=== PATIENT | male | born 1960 | race Caucasian/White ===

== ENCOUNTER 2024-01-19 10:18 | Inpatient (IN) ==
--- NOTE | 2024-01-19 10:37 | Emergency Department Note ---
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 The episodes are sporadic and characterized by seconds of severe imbalance and dizziness and brain fog that then lydia but he also reports an underlying constant feeling of dizziness. He feels at times that he may pass out but has not lost consciousness. He denies any recent fevers, chills, cough, congestion, GI or symptoms. He reports he has been hydrating for. He works from home. He denies any tobacco use, alcohol use, marijuana or drugs otherwise. A stroke alert was activated in triage due to the onset of symptoms within 24 hours ago not considered to be a TNK candidate given last known well prior to onset of symptoms was 7 PM last night. On evaluation the patient is no distress, afebrile with stable vital signs. He appears clinically dry. He exhibits no focal objective neurologic deficits at this time. Speech is fluent. CN II-XII grossly intact. 5/5 strength and SILT x 4 extremities. Cerebellar function intact including [id number], alternating palms, [id number]. EKG does not demonstrate overt acute ischemia. Patient's prior history of known type I Brugada pattern is seen with intermittent PVCs. QTc is 469, QRS 132, NC 368. WBC, H/H and platelets within normal limits. Chemistry without metabolic acidosis. Electrolytes and LFTs without significant abnormality. Has to be troponin 3.2, within normal limits. UA without evidence of infection. CT of the head and CT of the head and neck were performed and were negative for ICH, ischemia or severe narrowing or occlusion of large vessels. Given no large vessel occlusion stroke alert was discontinued. IV fluid hydration was administered. Case was discussed with [facility], who will evaluate the patient for admission. Triage Nursing notes reviewed and agree them. Prior/external medical records reviewed Vital Signs: reviewed Differential diagnosis: Benign positional vertigo, dehydration, hypovolemia, anemia, tumor, infection, hypoglycemia, electrolyte abnormalities, cardiac sources, intracerebral event, toxicologic, neurologic, as well as other pathologies. ER treatment provided: See below. Diagnostics interpreted by me: ECG: Sinus rhythm with first-degree AV block, 71 bpm. Type I Brugada pattern is seen with intermittent PVCs. QTc is 469, QRS 132, NC 368. 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 The episodes are sporadic and characterized by seconds of severe imbalance and dizziness and brain fog that then lydia but he also reports an underlying constant feeling of dizziness. He feels at times that he may pass out but has not lost consciousness. He denies any recent fevers, chills, cough, congestion, GI or symptoms. He reports he has been hydrating for. He works from home. He denies any tobacco use, alcohol use, marijuana or drugs otherwise. ROS: See above HPI for pertinent positives & negatives. A total of 10 systems reviewed and were otherwise negative. VITALS:See Below PHYSICAL EXAMINATION: GENERAL: Awake, alert, in no distress HENT: Normocephalic, atraumatic. Oropharynx with dry mucous membranes and otherwise unremarkable. EYES: Normal conjunctiva. Sclera non-icteric. EOMI. No nystamgus. PEARRL. NECK: Supple. No nuchal rigidity. FROM. No JVD. RESPIRATORY: Clear to auscultation. CARDIAC: Regular rate, normal rhythm. Extremities warm and well perfused. Pulses equal. ABDOMEN: Soft, non-distended. No tenderness to palpation. No rebound or guarding. No masses. MUSCULOSKELETAL: Chest examination reveals no tenderness. The back is symmetrical on inspection without obvious abnormality. There is no CVA tenderness to palpation. No joint edema. LOWER EXTREMITIES: Calves are equal size bilaterally and non-tender. No edema. No discoloration. NEURO: Normal sensorium. No sensory or motor deficits noted. Cranial nerves II- XII grossly intact. 5/5 strength and SILT x 4 extremities. Cerebellar function intact including hekyao-[id number], alternating palms, [id number]. SKIN: No rash or jaundice noted. Elías Chinchilla MD Past Med/Surg History Problem List Acute Lyme disease First degree atrioventricular block Near syncope PVCs (premature ventricular contractions) (Acute) Brugada pattern on electrocardiogram (Acute) Stroke-like symptoms (Acute) Dizziness (Acute) Social History Smoking Status: Never smoker Hx Alcohol Use: No Hx Substance Use: No Preferred Language: French Communication Ability: Effective Rigger Chief Required: No Beliefs That Will Affect Care: None Current Living Situation: Spouse Feels Safe at Home: Yes Safety Concerns: Feels Safe At This Time Assistive Devices: None Allergies Allergies Allergy/AdvReac Type Severity Reaction Status Date / Time aspirin Allergy Mild Unverified 06/28/09 04:28 Home Meds Home Medications Medication Instructions Recorded Confirmed Multivitamin 1 tab PO DAILY ##0 03/07/08 01/19/24 Omeprazole (Prilosec) 40 mg PO UD ##0 03/07/08 01/19/24 Travoprost (Travatan Oph Soln 1 drp ophthalmic (eye) UD ##0 03/07/08 01/19/24 0.004% *) bimatoprost 0.03 % eye drops 1 drp OPB 01/19/24 01/19/24 fluticasone propionate 50 2 spray intranasal BID 01/19/24 01/19/24 mcg/actuation nasal spray,suspension gabapentin 300 mg capsule 300 - 600 mg PO HS 01/19/24 01/19/24 pantoprazole 40 mg tablet,delayed 40 mg PO [facility] 01/19/24 01/19/24 release timolol maleate 0.5 % eye drops 1 drp OPB [facility] 01/19/24 01/19/24 Results & Data (ED) Vital Signs Vital Signs - 24 hr 01/19/24 10:23 01/19/24 10:46 01/19/24 10:51 Temperature 36.7 C Temperature Source Temporal Artery Scan Pulse Rate - Lying Pulse Rate - Sitting Pulse Rate - Standing Pulse Rate 65 67 Pulse Rate from SpO2 Sensor 66 Respiratory Rate 18 22 Respiratory Effort / Characteristics Non-Labored Spontaneous Respiratory Depth Normal Blood Pressure - Lying Blood Pressure - Sitting Blood Pressure- Standing Blood Pressure 140/78 127/83 Blood Pressure Mean 98 93 Blood Pressure Position Sitting Pulse Oximetry 98 97 Oxygen Delivery Method Room Air Sepsis Recent Fever Within 48 Hours No Sepsis New/Unexplained Change in Mental Status No Sepsis Action Taken by Nursing No Action Required 01/19/24 10:55 01/19/24 10:55 01/19/24 10:57 Temperature Temperature Source Pulse Rate - Lying 69 Pulse Rate - Sitting 66 Pulse Rate - Standing 66 Pulse Rate 67 Pulse Rate from SpO2 Sensor 67 Respiratory Rate 21 Respiratory Effort / Characteristics Respiratory Depth Blood Pressure - Lying 137/84 Blood Pressure - Sitting 131/80 Blood Pressure- Standing 136/80 Blood Pressure 136/80 Blood Pressure Mean 112 Blood Pressure Position Pulse Oximetry 98 Oxygen Delivery Method Sepsis Recent Fever Within 48 Hours Sepsis New/Unexplained Change in Mental Status Sepsis Action Taken by Nursing 01/19/24 11:00 01/19/24 11:03 01/19/24 11:24 Temperature Temperature Source Pulse Rate - Lying Pulse Rate - Sitting Pulse Rate - Standing Pulse Rate 63 65 Pulse Rate from SpO2 Sensor 63 70 Respiratory Rate 16 19 Respiratory Effort / Characteristics Respiratory Depth Blood Pressure - Lying Blood Pressure - Sitting Blood Pressure- Standing Blood Pressure 131/79 Blood Pressure Mean 106 Blood Pressure Position Pulse Oximetry 98 94 Oxygen Delivery Method Sepsis Recent Fever Within 48 Hours Sepsis New/Unexplained Change in Mental Status Sepsis Action Taken by Nursing 01/19/24 11:24 01/19/24 11:27 01/19/24 11:30 Temperature Temperature Source Pulse Rate - Lying Pulse Rate - Sitting Pulse Rate - Standing Pulse Rate 63 Pulse Rate from SpO2 Sensor 67 Respiratory Rate 16 Respiratory Effort / Characteristics Respiratory Depth Blood Pressure - Lying Blood Pressure - Sitting Blood Pressure- Standing Blood Pressure 136/94 129/75 Blood Pressure Mean 111 88 Blood Pressure Position Pulse Oximetry 93 Oxygen Delivery Method Sepsis Recent Fever Within 48 Hours Sepsis New/Unexplained Change in Mental Status Sepsis Action Taken by Nursing 01/19/24 11:33 01/19/24 11:39 01/19/24 11:56 Temperature Temperature Source Pulse Rate - Lying Pulse Rate - Sitting Pulse Rate - Standing Pulse Rate 59 L 65 Pulse Rate from SpO2 Sensor 57 L 65 Respiratory Rate 16 21 Respiratory Effort / Characteristics Respiratory Depth Blood Pressure - Lying Blood Pressure - Sitting Blood Pressure- Standing Blood Pressure 137/78 Blood Pressure Mean 88 Blood Pressure Position Pulse Oximetry 97 97 Oxygen Delivery Method Sepsis Recent Fever Within 48 Hours Sepsis New/Unexplained Change in Mental Status Sepsis Action Taken by Nursing 01/19/24 11:59 01/19/24 12:00 01/19/24 12:00 Temperature Temperature Source Pulse Rate - Lying Pulse Rate - Sitting Pulse Rate - Standing Pulse Rate 59 L 56 L Pulse Rate from SpO2 Sensor 58 L Respiratory Rate 21 Respiratory Effort / Characteristics Respiratory Depth Blood Pressure - Lying Blood Pressure - Sitting Blood Pressure- Standing Blood Pressure 123/80 Blood Pressure Mean 98 Blood Pressure Position Pulse Oximetry 97 Oxygen Delivery Method Sepsis Recent Fever Within 48 Hours Sepsis New/Unexplained Change in Mental Status Sepsis Action Taken by Nursing Laboratory Data Attestation: I reviewed the patient's lab results. 01/20/24 05:34 01/20/24 05:34 Lab Results 01/19/24 01/19/24 01/19/24 Range/Units 10:35 10:42 10:52 WBC 8.65 (4.8-10.8) K/ul RBC 4.75 (4.70-6.10) M/uL Hgb 14.1 (14.0-18.0) g/dl POC Hgb 14.3 (14.0-18.0) g/dl Hct 42.4 (42.0-52.0) % POC Hct 42 (42-52) % MCV 89.3 (80.0-100.0) fL MCH 29.7 (25.0-34.0) pg MCHC 33.3 (32.0-36.0) g/dL RDW Std Deviation 42.6 (36.4-46.3) fL RDW Coeff of Shania 12.9 (11.5-14.5) % Plt Count 285 (130-400) K/uL MPV 8.8 L (9.4-12.4) fL Immature Gran % (Auto) 0.3 % Neut % (Auto) 70.8 % Lymph % (Auto) 18.7 % [place] % (Auto) 7.6 % Eos % (Auto) 2.0 % Baso % (Auto) 0.6 % Neut # (Auto) 6.12 (1.40-6.50) K/uL Lymph # (Auto) 1.62 (1.20-3.40) K/uL [place] # (Auto) 0.66 H (0.11-0.59) K/uL Eos # (Auto) 0.17 (0.00-0.50) K/uL Baso # (Auto) 0.05 (0.00-0.20) K/uL Immature Gran # (Auto) 0.03 (0.01-0.20) K/uL PT 10.7 (9.0-12.0) Seconds INR 1.0 (0.9-1.1) APTT 30 (21-31) Seconds PTT Ratio 1.1 POC Sodium 137 (135-144) mmol/L Sodium 136 (136-145) mmol/L POC Potassium 4.1 (3.3-5.0) mmol/L Potassium 4.1 (3.5-5.1) mmol/L POC Chloride 102 (101-112) mmol/L Chloride 103 (98-107) mmol/L Carbon Dioxide 27 (21-32) mmol/L POC Total CO2 25 (24-31) mmol/L Anion Gap 6 (3-11) POC Anion Gap 15.0 L (16-25) mmol/L POC BUN 13 (7-18) mg/dl BUN 15 (6-23) mg/dl Creatinine 1.18 (0.6-1.4) mg/dl POC Creatinine 1.2 (0.6-1.3) mg/dl Est Cr Clr Drug Dosing 82.6 ml/min Est GFR ( Amer) 75.7 ml/min Est GFR (Non-Af Amer) 65.3 ml/min BUN/Creatinine Ratio 12.7 (10-20) Glucose 98 (70-99(Fasting)) mg/dl POC Glucose 102 H (70-99) mg/dl POC Glucose (other) 98 (70-99) mg/dl Calcium 9.3 (8.6-10.3) mg/dl POC Ioniz Calcium Liat 1.18 (1.12-1.32) mmol/l Magnesium 2.1 (1.7-2.4) mg/dl Total Bilirubin 0.6 (0.2-1.0) mg/dl AST 17 (13-39) U/L ALT 17 (7-52) U/L Alkaline Phosphatase 94 (34-104) U/L Troponin I High Sens 3.2 (0-20) pg/ml Total Protein 7.4 (6.0-8.3) gm/dl Albumin 4.3 (3.4-5.0) gm/dl Globulin 3.1 (2.5-4.0) gm/dl Albumin/Globulin Ratio 1.4 (0.9-2) Urine Color Urine Appearance (Clear) Urine pH (4.5-7.5) Ur Specific [place] (1.000-1.030) Urine Protein (Negative) Urine Glucose (UA) (Negative) Urine Ketones (Negative) Urine Blood (Negative) Urine Nitrite (Negative) Urine Bilirubin (Negative) Urine Urobilinogen (Negative) Ur Leukocyte Esterase (Negative) Lyme Disease Screen Positive H (Negative) Lyme Tier 2 IgG Confirm Positive H (Negative) Lyme Tier 2 IgM Confirm Positive H (Negative) 01/19/24 Range/Units 11:43 WBC (4.8-10.8) K/ul RBC (4.70-6.10) M/uL Hgb (14.0-18.0) g/dl POC Hgb (14.0-18.0) g/dl Hct (42.0-52.0) % POC Hct (42-52) % MCV (80.0-100.0) fL MCH (25.0-34.0) pg MCHC (32.0-36.0) g/dL RDW Std Deviation (36.4-46.3) fL RDW Coeff of Shania (11.5-14.5) % Plt Count (130-400) K/uL MPV (9.4-12.4) fL Immature Gran % (Auto) % Neut % (Auto) % Lymph % (Auto) % [place] % (Auto) % Eos % (Auto) % Baso % (Auto) % Neut # (Auto) (1.40-6.50) K/uL Lymph # (Auto) (1.20-3.40) K/uL [place] # (Auto) (0.11-0.59) K/uL Eos # (Auto) (0.00-0.50) K/uL Baso # (Auto) (0.00-0.20) K/uL Immature Gran # (Auto) (0.01-0.20) K/uL PT (9.0-12.0) Seconds INR (0.9-1.1) APTT (21-31) Seconds PTT Ratio POC Sodium (135-144) mmol/L Sodium (136-145) mmol/L POC Potassium (3.3-5.0) mmol/L Potassium (3.5-5.1) mmol/L POC Chloride (101-112) mmol/L Chloride (98-107) mmol/L Carbon Dioxide (21-32) mmol/L POC Total CO2 (24-31) mmol/L Anion Gap (3-11) POC Anion Gap (16-25) mmol/L POC BUN (7-18) mg/dl BUN (6-23) mg/dl Creatinine (0.6-1.4) mg/dl POC Creatinine (0.6-1.3) mg/dl Est Cr Clr Drug Dosing ml/min Est GFR ( Amer) ml/min Est GFR (Non-Af Amer) ml/min BUN/Creatinine Ratio (10-20) Glucose (70-99(Fasting)) mg/dl POC Glucose (70-99) mg/dl POC Glucose (other) (70-99) mg/dl Calcium (8.6-10.3) mg/dl POC Ioniz Calcium Liat (1.12-1.32) mmol/l Magnesium (1.7-2.4) mg/dl Total Bilirubin (0.2-1.0) mg/dl AST (13-39) U/L ALT (7-52) U/L Alkaline Phosphatase (34-104) U/L Troponin I High Sens (0-20) pg/ml Total Protein (6.0-8.3) gm/dl Albumin (3.4-5.0) gm/dl Globulin (2.5-4.0) gm/dl Albumin/Globulin Ratio (0.9-2) Urine Color Yellow Urine Appearance Clear (Clear) Urine pH 8.0 H (4.5-7.5) Ur Specific [place] 1.015 (1.000-1.030) Urine Protein Negative (Negative) Urine Glucose (UA) Negative (Negative) Urine Ketones Negative (Negative) Urine Blood Negative (Negative) Urine Nitrite Negative (Negative) Urine Bilirubin Negative (Negative) Urine Urobilinogen Negative (Negative) Ur Leukocyte Esterase Negative (Negative) Lyme Disease Screen (Negative) Lyme Tier 2 IgG Confirm (Negative) Lyme Tier 2 IgM Confirm (Negative) Administered Medications Bimatoprost (Bimatoprost 0.01% Op Soln 2.5 Ml Btl) 1 drops OPB HS [facility]; Protocol Stop: 02/18/24 20:59 Last Admin: 01/20/24 20:18 Dose: Not Given Documented By: Admin: 01/19/24 22:02 Dose: 1 drops Documented By: REBECA Doxycycline Hyclate (Doxycycline Hyclate 100 Mg Cap) 100 mg PO BID [facility] Stop: 01/29/24 20:59 Last Admin: 01/20/24 20:18 Dose: 100 mg Documented By: Admin: 01/20/24 09:39 Dose: 100 mg Documented By: Admin: 01/19/24 22:02 Dose: 100 mg Documented By: REBECA Fluticasone Propionate (Fluticasone Propionate Na Spr 16 Gm Btl) 2 sprays MARCELLE BID [facility] Stop: 02/18/24 20:59 Last Admin: 01/20/24 20:18 Dose: 2 sprays Documented By: Admin: 01/20/24 09:38 Dose: Not Given Documented By: Admin: 01/19/24 22:03 Dose: Not Given Documented By: REBEAC Gabapentin (Gabapentin 300 Mg Cap) 300 mg PO HS [facility] Stop: 02/19/24 20:59 Last Admin: 01/20/24 20:18 Dose: 300 mg Documented By: CONSUELO Heparin Sodium (Porcine) (Heparin Sod 5,000 Unit/0.5 Ml Vial) 5,000 units SQ Q12 AMBER Stop: 02/18/24 20:59 Last Admin: 01/20/24 20:17 Dose: 5,000 units Documented By: Admin: 01/20/24 09:39 Dose: 5,000 units Documented By: Admin: 01/19/24 22:02 Dose: 5,000 units Documented By: REBECA Ceftriaxone Sodium (Rocephin) 2,000 mg in 50 mls @ 100 mls/hr IV Q24H [facility] Stop: 01/29/24 19:59 Last Infusion: 01/20/24 21:05 Dose: Infused Documented By: Admin: 01/20/24 20:18 Dose: 100 mls/hr Documented By: Infusion: 01/19/24 22:33 Dose: Infused Documented By: Admin: 01/19/24 22:03 Dose: 100 mls/hr Documented By: REBECA Pantoprazole Sodium (Pantoprazole 40 Mg Tab) [facility] Stop: 02/19/24 08:59 Last Admin: 01/20/24 09:38 Dose: 40 mg Documented By: KALIE Timolol Maleate (Timolol Maleate 0.5% Op Soln 5 Ml Btl) 1 drops [facility] Stop: 02/19/24 08:59 Last Admin: 01/20/24 09:39 Dose: 1 drops Documented By: KALIE Discontinued Medications Atorvastatin Calcium (Atorvastatin 40 Mg Tab) 40 mg PO QAM [facility] Stop: 02/19/24 08:59 Last Admin: 01/20/24 09:38 Dose: Not Given Documented By: KALIE Gadobutrol (Gadobutrol 65ml Vial) 10 ml IV ONCE ONE Stop: 01/19/24 21:18 Last Admin: 01/19/24 21:17 Dose: 10 ml Documented By: CHACHA Sodium Chloride (Nss) 1,000 mls @ 999 mls/hr IV .Q1H1M ONE Stop: 01/19/24 11:35 Last Infusion: 01/19/24 11:38 Dose: Infused Documented By: Admin: 01/19/24 10:58 Dose: 999 mls/hr Documented By: ROMULO Ioversol (Optiray 320 125ml) 120 ml IV ONCE ONE Stop: 01/19/24 10:44 Last Admin: 01/19/24 10:43 Dose: 120 ml Documented By: PARESH Imaging Data Radiologist's Impression: Head CT 01/19/24 10:35 CT SCAN OF THE BRAIN WITHOUT IV CONTRAST CLINICAL HISTORY: Neurologic deficit. Stroke like symptoms. COMPARISON STUDY: MRI of the brain dated 03/07/2008. TECHNIQUE: Unenhanced axial CT scan of the brain is performed from the vertex to the skull base. A dose lowering technique was utilized adhering to the principles of ALARA. FINDINGS: Brain parenchyma: The brain parenchyma is normal in appearance. There is no hemorrhage, mass effect, or evidence of acute territorial ischemia by CT criteria. Guzman-white matter differentiation is preserved. No extra-axial fluid collection is seen. Ventricles, sulci, cisterns: Normal in configuration. Intracranial vasculature: There is atherosclerotic calcification of the cavernous carotid arteries. Calvarium: Unremarkable. Sinuses and mastoids: The visualized paranasal sinuses are clear. The mastoid air cells are well pneumatized. Orbits: The bony orbits are grossly intact. IMPRESSION: There is no hemorrhage, mass effect, or evidence of acute territorial ischemia by CT criteria. ACT 112: Negative or not required by law. Electronically signed by: Shamir Walter M.D. 01/19/2024 10:48 AM Head CTA 01/19/24 10:35 CTA ANGIOGRAPHY OF THE HEAD CLINICAL HISTORY: neuro deficit, acute stroke suspected COMPARISON STUDY: MRI of the brain March 07, 2008. TECHNIQUE: Helical axial images of the head were obtained following uneventful intravenous administration of 118 cc of Optiray. Sagittal and coronal reconstructions were viewed as well as maximal intensity projections on an independent 3-D workstation. Automated exposure control was utilized for the study. A dose lowering technique was utilized adhering to the principles of ALARA. FINDINGS: No acute intracranial hemorrhage, midline shift or mass effect is present. Ventricular system is normal. Basal cisterns are patent. The bilateral M1, M2, A1 and A2 segments are patent. No vessel occlusion is identified. Posterior circulation is intact. There is no intracranial aneurysm. There is a prominent infundibulum for the left ophthalmic artery. Major dural sinuses are patent. IMPRESSION: No large vessel occlusion. No intracranial aneurysm. ACT 112: Negative or not required by law. Electronically signed by: Osvaldo Avery M.D. 01/19/2024 11:16 AM Neck CTA 01/19/24 10:35 NECK CTA HISTORY: neuro deficit, acute stroke suspected TECHNIQUE: Multiaxial CT images of the neck were performed following the intravenous administration of contrast to evaluate the major cervical vessels. 3D/MIP images were also obtained. Sagittal and coronal reformats were reviewed. All measurements were calculated based on NASCET criteria. A dose lowering technique was utilized adhering to the principles of ALARA. COMPARISON STUDY: None. FINDINGS: The aortic arch and proximal great vessels are widely patent. There is no significant stenosis, occlusion, or dissection identified within the bilateral common carotid, internal carotid, or vertebral arteries. IMPRESSION: No significant stenosis, occlusion, or dissection identified within the carotid or vertebral arteries. ACT 112: Negative or not required by law. Electronically signed by: Talha Wang M.D. 01/19/2024 11:44 AM Discharge Plan Visit Data Chief Complaint: Dizziness Stated Complaint: DIZZY, REF BY DOC ED Provider: Elías Chinchilla Discharge Problem: Dizziness, Stroke-like symptoms, Brugada pattern on electrocardiogram, PVCs (premature ventricular contractions) Patient Disposition: Admitted As Inpatient Discharge Instructions Interventions: ED Discharge Assessment Last Done: 01/19/24 15:29
[2024-01-19] MEDS: OPTIRAY 320 125ml IV ONE (10:43)
--- NOTE | 2024-01-19 10:50 | CT Scan Report ---
CT SCAN OF THE BRAIN WITHOUT IV CONTRAST CLINICAL HISTORY: Neurologic deficit. Stroke like symptoms. COMPARISON STUDY: MRI of the brain dated 03/07/2008. TECHNIQUE: Unenhanced axial CT scan of the brain is performed from the vertex to the skull base. A d ose lowering technique was utilized adhering to the principles of ALARA. FINDINGS: Brain parenchyma: The brain parenchyma is normal in appearance. There is no hemorrhage, mass effect, or evidence of acute territorial ischemia by CT criteria. Guzman-white matter differentiation is preser rosales. No extra-axial fluid collection is seen. Ventricles, sulci, cisterns: Normal in configuration. Intracranial vasculature: There is atherosclerotic calcification of the cavernous carotid arteries. Calvarium: Unremarkable. Sinuses and mastoids: The visualized paranasal sinuses are clear. The mastoid air cells are well pneu matized. Orbits: The bony orbits are grossly intact. IMPRESSION: There is no hemorrhage, mass effect, or evidence of acute territorial ischemia by CT abby moore. ACT 112: Negative or not required by law. Electronically signed by: Shamir Walter M.D. 01/19/2024 10:48 AM
[2024-01-19 10:55] LABS: iSTAT Creatinine 1.2 mg/dl (0.6-1.3); iSTAT Hemoglobin 14.3 g/dl (14.0-18.0); iSTAT Ionized Calcium 1.18 mmol/l (1.12-1.32); iSTAT Potassium 4.1 mmol/L (3.3-5.0)
[2024-01-19 10:57] LABS: Basophils # (auto) 0.05 K/uL (0.00-0.20); Basophils % (auto) 0.6 %; Eosinophils # (auto) 0.17 K/uL (0.00-0.50); Hematocrit (blood only) 42.4 % (42.0-52.0); Hemoglobin 14.1 g/dl (14.0-18.0); Immature Granulocytes # (auto) 0.03 K/uL (0.01-0.20); Immature Granulocytes % (auto) 0.3 %; Lymphocytes # (auto) 1.62 K/uL (1.20-3.40); Lymphocytes % (auto) 18.7 %; Mean Corpuscular Hemoglobin 29.7 pg (25.0-34.0); Mean Corpuscular Hgb Conc 33.3 g/dL (32.0-36.0); Mean Corpuscular Volume 89.3 fL (80.0-100.0); Mean Platelet Volume 8.8 fL (9.4-12.4); Monocytes # (auto) 0.66 K/uL (0.11-0.59); Monocytes % (auto) 7.6 %; Neutrophils # (auto) 6.12 K/uL (1.40-6.50); Neutrophils % (auto) 70.8 %; Platelet Count 285 K/uL (130-400); RDW Coefficient of Variation 12.9 % (11.5-14.5); RDW Standard Deviation 42.6 fL (36.4-46.3); Red Blood Count 4.75 M/uL (4.70-6.10); White Blood Count 8.65 K/ul (4.8-10.8)
[2024-01-19] MEDS: SODIUM CHLORIDE 0.9% 1,000 ML IV ONE (10:58)
[2024-01-19 11:08] LABS: Partial Thromboplastin Ratio 1.1; Partial Thromboplastin Time 30 Seconds (21-31); Prothrombin Time 10.7 Seconds (9.0-12.0)
[2024-01-19 11:10] LABS: Albumin Globulin Ratio 1.4 (0.9-2); Albumin Level 4.3 gm/dl (3.4-5.0); BUN Creatinine Ratio 12.7 (10-20); Bilirubin,Total 0.6 mg/dl (0.2-1.0); Calcium 9.3 mg/dl (8.6-10.3); Creatinine Clr Calc Pharmacy 82.6 ml/min; Est GFR (African American) 75.7 ml/min; Est GFR (Non-African American) 65.3 ml/min; Globulin 3.1 gm/dl (2.5-4.0); Magnesium 2.1 mg/dl (1.7-2.4); Potassium 4.1 mmol/L (3.5-5.1); Total Protein 7.4 gm/dl (6.0-8.3)
[2024-01-19 11:16] LABS: Troponin I High Sensitivity 3.2 pg/ml (0-20)
--- NOTE | 2024-01-19 11:18 | CT Scan Report ---
CTA ANGIOGRAPHY OF THE HEAD CLINICAL HISTORY: neuro deficit, acute stroke suspected COMPARISON STUDY: MRI of the brain March 07, 2008. TECHNIQUE: Helical axial images of the head were obtained following uneventful intravenous administr ation of 118 cc of Optiray. Sagittal and coronal reconstructions were viewed as well as maximal inten sity projections on an independent 3-D workstation. Automated exposure control was utilized for the study. A dose lowering technique was utilized adhering to the principles of ALARA. FINDINGS: No acute intracranial hemorrhage, midline shift or mass effect is present. Ventricular syst em is normal. Basal cisterns are patent. The bilateral M1, M2, A1 and A2 segments are patent. No vess el occlusion is identified. Posterior circulation is intact. There is no intracranial aneurysm. There is a prominent infundibulum for the left ophthalmic artery. Major dural sinuses are patent. IMPRESSION: No large vessel occlusion. No intracranial aneurysm. ACT 112: Negative or not required by law. Electronically signed by: Osvaldo Avery M.D. 01/19/2024 11:16 AM
--- NOTE | 2024-01-19 11:45 | CT Scan Report ---
NECK CTA HISTORY: neuro deficit, acute stroke suspected TECHNIQUE: Multiaxial CT images of the neck were performed following the intravenous administration o f contrast to evaluate the major cervical vessels. 3D/MIP images were also obtained. Sagittal and cor onal reformats were reviewed. All measurements were calculated based on NASCET criteria. A dose low ering technique was utilized adhering to the principles of ALARA. COMPARISON STUDY: None. FINDINGS: The aortic arch and proximal great vessels are widely patent. There is no significant sten osis, occlusion, or dissection identified within the bilateral common carotid, internal carotid, or v ertebral arteries. IMPRESSION: No significant stenosis, occlusion, or dissection identified within the carotid or vertebral arteries . ACT 112: Negative or not required by law. Electronically signed by: Talha Wang M.D. 01/19/2024 11:44 AM
[2024-01-19 12:10] LABS: Appearance Urine Clear (Clear); Bilirubin Urine Negative (Negative); Blood Urine Negative (Negative); Color Urine Yellow; Glucose Urine UA Negative (Negative); Ketones Urine Negative (Negative); Leukocyte Esterase Urine Negative (Negative); Nitrite Urine Negative (Negative); Protein Urine Negative (Negative); Specific Gravity Urine 1.015 (1.000-1.030); Urobilinogen Urine Negative (Negative)
--- NOTE | 2024-01-19 12:35 | History & Physical Report ---
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 Pt was a stroke alert and was not a TNK candidate. Persistent Dizziness Stroke rule out Pt presenting with persistent dizziness Head CT, head and neck CTA all without acute findings Brain MRI pending Echo pending PT/OT and speech evals Orthostatic vitals Continue to monitor on telemetry Neurology consult, appreciate recs Hx of Type 1 Brugada changes on EKG SCN5A gene positive EKG with Type 1 Brugada changes Echo pending Continue with telemetry monitoring Cardiology consulted, appreciate recs Continue other home meds as ordered. 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 Pt was a stroke alert and was not a TNK candidate. States that he had "about 20" episodes of dizziness this morning since waking up. States it did not matter what he was doing at the time, had episodes while eating breakfast, laying down, etc. Does note that he has been very active outside recently walking the dog and riding his bicycle. States that he has been trying to stay hydrated whenever he does that. Describes the episodes of dizziness like he is "about to pass out" but states that he does not really. States it feels like it goes dark. Per chart review pt with Hx of brugada changes on EKG with positive gene testing, was being followed by cardiology. Currently denies any symptoms while being in the hospital. Pt was a stroke alert on arrival but deemed not a TNK candidate after evaluation by telestroke. Allergies Allergy/AdvReac Type Severity Reaction Status Date / Time aspirin Allergy Mild Unverified 06/28/09 04:28 Home Medications Medication Instructions Recorded Confirmed Type Multivitamin 1 tab PO DAILY ##0 03/07/08 01/19/24 History Omeprazole (Prilosec) 40 mg PO UD ##0 03/07/08 01/19/24 History Travoprost (Travatan Oph Soln 1 drp ophthalmic (eye) UD ##0 03/07/08 01/19/24 History 0.004% *) bimatoprost 0.03 % eye drops 1 drp OPB HS 01/19/24 01/19/24 History fluticasone propionate 50 2 spray intranasal BID 01/19/24 01/19/24 History mcg/actuation nasal spray,suspension gabapentin 300 mg capsule 300 - 600 mg PO HS 01/19/24 01/19/24 History pantoprazole 40 mg tablet,delayed 40 mg PO QAM 01/19/24 01/19/24 History release timolol maleate 0.5 % eye drops 1 drp OPB QAM 01/19/24 01/19/24 History Past Med/Surg History Problem List (Updated 01/19/24 @ 12:29 by Elías Chinchilla MD) PVCs (premature ventricular contractions) (Acute) Brugada pattern on electrocardiogram (Acute) Stroke-like symptoms (Acute) Dizziness (Acute) Social History Smoking Status: Never smoker Preferred Language: Andorran Feels Safe at Home: Yes Review of Systems Review of Systems: All systems reviewed & are unremarkable except as noted in Subjective Physical Exam Physical Exam: General: Alert, oriented. No acute distress Skin: No noted rashes or bruises Psych: Appropriate mood and affect Neuro: No gross deficits, strength 5/5 bilaterally HEENT: NC/AT CV: RRR Resp: Breath sounds clear bilaterally, no increased effort of breathing. Abdomen: Soft, nontender, nondistended Extremities: No edema in lower extremities bilaterally. Results & Data Results & Data Vital Signs (Past 12 Hours) Vital Signs Temp Pulse Resp BP Pulse Ox O2 Del Method 01/19/24 12:00 56 L 21 97 01/19/24 12:00 123/80 01/19/24 11:59 59 L 01/19/24 11:56 137/78 01/19/24 11:39 65 21 97 01/19/24 11:33 59 L 16 97 01/19/24 11:30 129/75 01/19/24 11:27 63 16 93 01/19/24 11:24 136/94 01/19/24 11:24 65 19 94 01/19/24 11:03 63 16 98 01/19/24 11:00 131/79 01/19/24 10:57 67 21 98 01/19/24 10:55 136/80 01/19/24 10:51 67 22 97 01/19/24 10:46 127/83 01/19/24 10:23 36.7 C 65 18 140/78 98 Room Air
--- NOTE | 2024-01-19 14:09 | XRay Report ---
SINGLE VIEW CHEST CLINICAL HISTORY: Dizziness FINDINGS: An AP, portable, upright chest radiograph is compared to study dated 03/07/2008. The heart is mildly enlarged. The pulmonary vasculature is noncongested. The lungs and pleural spaces are clear . No pneumothorax is seen. The bony thorax is grossly intact. IMPRESSION: No acute cardiopulmonary abnormality. ACT 112: Negative or not required by law. Electronically signed by: Shamir Walter M.D. 01/19/2024 2:07 PM
[2024-01-19] MEDS ORDERED: PHARMACIST DISCHARGE MED REC CONSULT PRN (15:28)
[2024-01-19] MEDS ORDERED: TRAVOPROST OP SCH (15:28)
[2024-01-19] MEDS ORDERED: [UNRECOGNIZED DRUG - OTHER] OP SCH (15:28)
--- NOTE | 2024-01-19 17:49 | Cardiology Consultation ---
Date of Consultation January 19, 2024 Assessment & Plan (1) Near syncope: (2) Brugada pattern on electrocardiogram: (3) PVCs (premature ventricular contractions): (4) First degree atrioventricular block: Presenting EKG is relatively unchanged compared to previous with the exception that the first-degree AV block is more pronounced. Previous tracing in 2022 included RI interval of 246 ms as compared to 368 ms at present. Recommend proceeding with a Lyme screen. Resting echocardiogram. Ongoing o bservation on telemetry to see if symptoms are reproduced while being monitored. Further recommendations to be forthcoming as hospital stay develops. History of Present Illness Attending Physician: Yi Espana MD History of Present Illness Mr Johnson is a 63 year old male seen in cardiology consultation per the request of Dr Espana for the evaluation of near syncope. Patient seen in the emergency department, room C2A, accompanied by his spouse. He noted that 2 months ago he had COVID for the first time. His symptoms included cough fever and low energy which had persisted for a number of weeks and he still feels like he is not quite back to being himself. He did not have any lightheadedness, dizziness, or worsening palpitations during that illness. This morning while having breakfast on his deck he started having spells of feeling like he might pass out. The spells were preceded by lightheadedness and then a momentary sensation like he might lose consciousness. He had 3 spells within a very brief amount of time and he believes that he had a total of 20 spells. He called the telemetry nurse and had recurrent symptoms while on the phone. He presented to the emergency department and was initially evaluated via the "stroke alert" protocol. During that time he had brief episodes of lightheadedness, but nothing that mimics the symptoms that prompted him to come to the hospital and he was observed on telemetry to have rare occasional PVCs per nursing report. Past Medical History Patient is known to the [facility]. He had most recently been seen in cardiology follow-up as an outpatient in May,. He has a history of a type I Brugada pattern on EKG and genetic testing was positive for the SCN5a genetic variant associated with Brugada syndrome. History notable for symptomatic PVCs as well as orthostatic hypotension. Family History Mother: at age 72 of sudden stroke. Had heart disease, details uncertain Father: at age 72, valvular heart disease, leakiness. Siblings: brother- "heart issue, details uncertain" Social History: to spouse, Holly Works with [employer] in [place] Non smoker Allergies Allergy/AdvReac Type Severity Reaction Status Date / Time aspirin Allergy Mild Unverified 06/28/09 04:28 Home Medications Medication Instructions Recorded Confirmed Type Multivitamin 1 tab PO DAILY ##0 03/07/08 01/19/24 History Omeprazole (Prilosec) 40 mg PO UD ##0 03/07/08 01/19/24 History Travoprost (Travatan Oph Soln 1 drp ophthalmic (eye) UD ##0 03/07/08 01/19/24 History 0.004% *) bimatoprost 0.03 % eye drops 1 drp OPB HS 01/19/24 01/19/24 History fluticasone propionate 50 2 spray intranasal BID 01/19/24 01/19/24 History mcg/actuation nasal spray,suspension gabapentin 300 mg capsule 300 - 600 mg PO HS 01/19/24 01/19/24 History pantoprazole 40 mg tablet,delayed 40 mg PO QAM 01/19/24 01/19/24 History release timolol maleate 0.5 % eye drops 1 drp OPB QAM 01/19/24 01/19/24 History Patient History Social History Smoking Status: Never smoker Preferred Language: Faroese Feels Safe at Home: Yes Review of Systems 2 Review of Systems: All systems reviewed & are unremarkable except as noted in HPI & below Physical Exam Physical Exam: General: no acute distress and stated age Eyes: conjunctiva are pink and non-injected, sclera clear Neck: normal jugular venous pulse, no hepatojugular reflux Chest: normal shape and normal respiratory effort Lungs: clear to auscultation and percussion Cardiac Exam: - regular heart sounds, no murmurs, rubs, or gallops, no jugular venous distention Abdomen: abdomen soft, non-tender, no abnormal masses and no hepatosplenomegaly Musculoskeletal: no gait disturbance, no weakness Extremities: no edema and no cyanosis Neuro:awake, conversant, follows commands, no focal motor deficits Psych: appropriate affect and insight. Results & Data Vital Signs (Past 12 Hours) Vital Signs Temp Pulse Resp BP Pulse Ox O2 Del Method 01/19/24 15:26 60 08/28/24 12:36 65 21 97 01/19/24 12:30 121/77 01/19/24 12:27 59 L 15 96 01/19/24 12:00 56 L 21 97 01/19/24 12:00 123/80 01/19/24 11:59 59 L 01/19/24 11:56 137/78 01/19/24 11:39 65 21 97 01/19/24 11:33 59 L 16 97 01/19/24 11:30 129/75 01/19/24 11:27 63 16 93 01/19/24 11:24 136/94 01/19/24 11:24 65 19 94 01/19/24 11:03 63 16 98 01/19/24 11:00 131/79 01/19/24 10:57 67 21 98 01/19/24 10:55 136/80 01/19/24 10:51 67 22 97 01/19/24 10:46 127/83 01/19/24 10:23 36.7 C 65 18 140/78 98 Room Air Laboratory Results Cardiac Enzymes 01/19/24 Range/Units 10:35 AST 17 (13-39) U/L Troponin I High Sens 3.2 (0-20) pg/ml Coagulation 01/19/24 Range/Units 10:35 PT 10.7 (9.0-12.0) Seconds APTT 30 (21-31) Seconds CBC 01/19/24 Range/Units 10:35 WBC 8.65 (4.8-10.8) K/ul RBC 4.75 (4.70-6.10) M/uL Hgb 14.1 (14.0-18.0) g/dl Hct 42.4 (42.0-52.0) % Plt Count 285 (130-400) K/uL Neut # (Auto) 6.12 (1.40-6.50) K/uL Lymph # (Auto) 1.62 (1.20-3.40) K/uL [place] # (Auto) 0.66 H (0.11-0.59) K/uL Eos # (Auto) 0.17 (0.00-0.50) K/uL Baso # (Auto) 0.05 (0.00-0.20) K/uL Comprehensive Metabolic Panel 01/19/24 Range/Units 10:35 Sodium 136 (136-145) mmol/L Potassium 4.1 (3.5-5.1) mmol/L Chloride 103 (98-107) mmol/L Carbon Dioxide 27 (21-32) mmol/L BUN 15 (6-23) mg/dl Creatinine 1.18 (0.6-1.4) mg/dl Glucose 98 (70-99(Fasting)) mg/dl Calcium 9.3 (8.6-10.3) mg/dl AST 17 (13-39) U/L ALT 17 (7-52) U/L Alkaline Phosphatase 94 (34-104) U/L Total Protein 7.4 (6.0-8.3) gm/dl Albumin 4.3 (3.4-5.0) gm/dl Intake and Output 01/19/24 01/19/24 01/19/24 06:59 14:59 22:59 Intake Total 1000 / 1000 Balance 1000 / 1000 Intake: IV 1000 / 1000 Sodium Chloride 0.9% 1,000 ml @ 1000 / 1000 999 mls/hr IV .Q1H1M ONE Rx#: [id number] Other: Weight 108 kg Weight Measurement Method Chair Scale Patient Weight 01/20/24 06:59 Weight 108 kg Diagnostic Findings Noncontrast CT of the head, CT angiogram of the head and neck vessels within normal limits EKG performed today 01/19/2024 interpreted independently reveals sinus rhythm at 71 bpm with long first-degree AV block, RI interval 368 ms, type I Brugada pattern, 2 PVCs noted during the EKG. Compared to previous outpatient EKG performed 06/16/2022, sinus bradycardia at 59 bpm at that time with type I Brugada pattern most prominent in lead V2, first-degree AV block noted at that time with RI interval of 246 ms 3-day Zio patch was worn in June,, predominant rhythm was sinus rhythm with rate of 74 bpm, patient triggered events correlated with sinus rhythm and sinus rhythm with premature ventricular contractions. The overall frequency of the premature ventricular contractions was rare accounting for less than 1% of total QRS complexes. Telemetry reveals sinus rhythm in the 60s with noted long first-degree AV block.
[2024-01-19 18:55] LABS: Lyme Screen Rflx Confirmation Positive (Negative)
--- OUTSIDE RECORDS SUMMARY | 2024-01-19 20:17 | External Medical Summary | Summary of Care ---
Author Name Unknown Organization [facility] Address [address] [place] [address] Phone [phone] Care Team Providers Care Charge Weigher Name Role Phone Scarlet PURVIS MD, Jonathan Garnica Primary Care Provider [phone] Reason for Visit * Reason Onset Date Comments Durable Medical Equipment 09/03/2023 Encounter Details Date Type Department Care Team ([facility] st Contact Info) Description 09/03/2023 Telephone Sleep Lab, [facility] [address] [place] [address] Barby Carrion, DO [address] [place] [address] Durable Medical Equipment Allergies Active Allergy Reactions Criticality Noted Date Comments Aspirin 09/07/2000 Tingly skin Omeprazole 03/26/2008 Side effects not an allergic reaction: light headed, loopy feeling documented as of this encounter (statuses as of 09/03/2023) Medications Medication Sig Dispensed Refills Start Date End Date Status MULTIVITAMINS PO TABS daily [facility] Men Performance and Vitality packets 0 10/28/2007 Active VISINE 0.05 % OP SOLN Instill into eye. 0 10/28/2007 Active TIMOLOL MALEATE 0.5 % (DAILY) OP SOLN one drop each eye in morning 0 Active LUMIGAN 0.01 % OP SOLN one deop in each eye in evening 0 Active Fluticasone Propionate 50 MCG/ACT Nasal Suspension Administer 2 Sprays into each nostril 2 times a day. 16 g 11 03/03/2021 Active Tadalafil 20 MG Oral Tablet (Cialis)Indication s:Erectile dysfunction, unspecified erectile dysfunction type 1 TABLET DAILY NEEDED 30 Tablet 3 12/11/2021 Active Sildenafil Citrate 100 MG Oral Tablet (Viagra) 1/2-1 tab 1-4 hours before intercourse, no more than 1 dose in 24 hours. 10 Tablet 5 03/09/2022 Active Pantoprazole Sodium 40 MG Oral Tablet Delayed Release (Protonix) TAKE 1 TABLET BY MOUTH ONCE DAILY 30-60 min BEFORE BREAKFAST 90 Tablet 3 07/06/2022 Active Hydrocortisone 2.5 % External CreamIndications:A topic dermatitis, unspecified type Apply topically to affected area 3 times a day. To affected area. 30 g 5 11/26/2022 Active Gabapentin 100 MG Oral Capsule (Neurontin) Take 1 Capsule by mouth at bedtime for 7 days, THEN 2 Capsules at bedtime for 23 days. 53 Capsule 0 08/19/2023 09/18/2023 Active documented as of this encounter (statuses as of 09/03/2023) Active Problems Problem Noted Date Diagnosed Date Herpes zoster without complication 12/19/2016 Frequent PVCs 10/14/2016 Orthostatic hypotension 10/14/2016 IVCD (intraventricular conduction defect) 2016 First degree AV block 10/14/2016 Tinnitus 05/21/2016 IBS (irritable bowel syndrome) 12/07/2011 Esophageal reflux 05/07/2008 Overview: 02/13/13: EGD GERD, no Ratliff's, mild gastritis Other specified glaucoma 07/01/2006 Overview: MIGUEL Russ OD ADVANCE DIRECTIVE INFORMATION 11/23/2005 Overview: No, Advance Directive brochure given to patient. Hemorrhoids, external without complications 11/21 Backache documented as of this encounter (statuses as of 09/03/2023) Resolved Problems Problem Noted Date Diagnosed Date Resolved Date Abnormal EKG 10/20/2016 08/04/2018 documented as of this encounter (statuses as of 09/03/2023) Immunizations Name Administration Dates Next Due COVID-19 mRNA, LNP-s, No Pre serve, 2-Dose Series (PostRank) 05/02/2021,09/05/2020,08/15/2020 HEP A - Hepatitis A (Adult > 18 yrs) 04/23/2010, 10/14/2009 Hepatitis B, 20+ yrs 04/23/2010,12/18/2009,10/14 Season Influenza, Cell Cultu re, 18+ Yrs, With Preserv (Flucelvax) 06/19/2013 Seasonal Influenza, PF, 6 M & above, IM , (FluLaval or Fluzone) 02/26/2023,02/07/2022,03/03/2021,2019(Deferred: Patient Refused),07/10/2019,07/04/2018,04/12/20 17 Seasonal Influenza, Quadriva lent, No Preserve, IM 05/12/2016 Seasonal Influenza, Split, I IV3, With Preserve, Inj 02/20/2015,03/23/2014 TD, Preservative Free 04/12/2017 TDAP (age 11 and older)(Adacel) 04/11/2007 Yellow Fever Vaccine 10/31/2008 Zoster Vaccine Recombinant (Shingrix) 06/26/2021 ,03/03/2021 documented as of this encounter Social History Tobacco Use Types Packs/Day Years Used Date Smoking Tobacco: Never Smokeless Tobacco: Never Alcohol Use Standard Drinks/Week Comments No 0 (1 standard drink = 0.6 oz pur e alcohol) none PHQ-2 Answer Date Recorded PHQ Adult Total Score 0 03/09/2022 Hunger Vital Sign Answer Date Recorded Within the past 12 months, y ou worried that your food would run out before you got the money to buy more. Never true 11/26/19 23 Within the past 12 months, t he food you bought just didn't last and you didn't have money to get more. Never true 11/25/2022 Sex and Gender Information Value Date Recorded Sex Assigned at Male 11/25/2022 10:36 AM EDT Gender Identity Male 11/25/2022 10:36 AM EDT Sexual Orientation Straight 11/25/2022 10 :36 AM EDT Job Start Date Occupation Industry Not on file Not on file Not on file documented as of this encounter Miscellaneous Notes * Telephone Encounter - Aimee Holloway, RPSGT - 09/03/2023 10:19 AM EDT Orders for mask/supplies were placed into the [facility] portal on 09.03.2023 @ 1015. documented in this encounter Plan of Treatment Upcoming Encounters Date Type Department Care Team (Late st Contact Info) Description 01/21/2024 11:40 AM EDT Office Visit Sleep Disorders Ctr [facility] [address] [place] [phone] Barby Carrion, [address] [place] [address] 05/15/2024 12:20 PM EST Office Visit Family Practice [facility] [address] [facility] [place] [address] Jonathan Novak III, MD [address] [facility] [place] [address] Scheduled Procedures Name Priority Associated Diagnoses Date/Ti me COLONOSCOPY FLEXIBLE PROXIMA L DIAGNOSTIC Recall Special screening for malignant neoplasms, colon Colon cancer screening Health Maintenance Due Date Last Done Comments Fecal Occult Blood Test 2005 Sigmoidoscopy 2005 COVID-19 Vaccine ( season) 2023 05/02/2021, 09/05/2020, 08/15/2020 Depression Screening 03/09/2023 03/09/2022 Cologuard 04/04/2024 04/04/2021, 1105/2020, 03/24/2021 Diabetes Screening 02/07/2025 02/07/2022, 0 10/08/2020, 10/08/2020, Additional history exists DTaP,Tdap,and Td Vaccines (3 - Td or Tdap) 04/12/2027 04/12/2017, 04/11/2007 Lipid Panel 02/27/2028 02/26/2023, 04/2 01/2019, 05/20/2017, Additional history exists Colonoscopy 07/13/2032 07/13/2022, 06/25, 06/16/2010, Additional history exists Colorectal Cancer Screening 07/13/2032 Hepatitis B Completed 04/23/2010, 11/22, 10/14/2009 Zoster Vaccines Completed 06/26/2021, 03/03/2021 Influenza Vaccine (FLU shot) Completed 10/2022, 02/07/2022, 03/03/2021, Additional history exists GARDASIL-HPV IMMUNIZATION SERIES Aged Out No longer eligible based on patient's age to complete this topic MENINGOCOCCAL (MENACTRA/MENVEO) Aged Out No longer eligible based on patient's age to complete this topic Pneumococcal Vaccine: Pediatrics (0 to 5 Years) and At-Risk Patients (6 to 64 Years) Aged Out No longer eligible based on patient's age to complete this topic documented as of this encounter Medical Devices Not on filedocumented as of this encounter Care Teams Charge Weigher Relationship Specialty Start Date End Date Jonathan Novak III, MD [address] [place] [address] PCP - General Family Medicine 06/18/16 documented as of this encounter
--- OUTSIDE RECORDS SUMMARY | 2024-01-19 20:17 | External Medical Summary | Summary of Care ---
Author Name Unknown Organization [facility] Address [address] [place] [address] Phone [phone] Care Team Providers Care Software Packaging Engineer Name Role Phone Scarlet PURVIS MD, Jonathan Garnica Primary Care Provider [phone] Encounter Details Date Type Department Care Team (Late st Contact Info) Description 10/05/2023 Orders Only PATIENT PORTAL DO NOT DELETE THIS DEPT USED BY [place] [id number] Allergies Active Allergy Reactions Criticality Noted Date Comments Aspirin 09/07/2000 Tingly skin Omeprazole 03/26/2008 Side effects not an allergic reaction: light headed, loopy feeling documented as of this encounter (statuses as of 10/05/2023) Medications Medication Sig Dispensed Refills Start Date [...] 03/03/2021 Active Tadalafil 20 MG Oral Tablet (Cialis)Indications :Erectile dysfunction, unspecified erectile dysfunction type 1 TABLET DAILY NEEDED 30 Tablet 3 12/11/2021 Active Sildenafil Citrate 100 MG Oral Tablet (Viagra) 1/2-1 tab 1-4 hours before intercourse, no more than 1 dose in 24 hours. 10 Tablet 5 03/09/2022 Active Hydrocortisone 2.5 % External CreamIndications:At opic dermatitis, unspecified type Apply topically to affected area 3 times a day. To affected area. 30 g 5 11/26/2022 Active Gabapentin 100 MG Oral Capsule (Neurontin) Take 2 Capsules by mouth at bedtime. 60 Capsule 1 09/21/2023 Active Pantoprazole Sodium 40 MG Oral Tablet Delayed Release (Protonix) TAKE 1 TABLET BY MOUTH ONCE DAILY 30-60 min BEFORE BREAKFAST 90 Tablet 3 09/30/2023 Active documented as of this encounter (statuses as of 10/05/2023) Active Problems Problem Noted Date Diagnosed Date [...] as of this encounter (statuses as of 10/05/2023) Resolved Problems Problem Noted Date Diagnosed Date Resolved Date Abnormal EKG 10/20/2016 08/04/2018 documented as of this encounter (statuses as of 10/05/2023) Immunizations Name Administration Dates Next Due COVID-19 mRNA, LNP-s, No Pre serve, 2-Dose Series (MetroLinked) 05/02/2021,09/05/2020,08/15/2020 HEP A - Hepatitis A (Adult [...] (age 11 and older)(Adacel) 04/11/2007 Yellow Fever Vaccine, Live (YF-Vax) 10/31/2008 Zoster Vaccine Recombinant (Shingrix) 06/26/2021 ,03/03/2021 [...] on file documented as of this encounter Plan of Treatment Upcoming Encounters Date Type Department Care Team (Late st Contact Info) Description 01/21/2024 11:40 AM EDT Office Visit Sleep Disorders Ctr [facility] [address] [place] [phone] Barby Carrion, [address] [facility] [place] [address] 05/15/2024 12:20 PM EST Office Visit [facility] [address] [place] [address] Jonathan Novak III, MD [address] [facility] [place] [address] Scheduled Procedures Name Priority Associated Diagnoses Date/Ti [...] 04/12/2027 04/12/2017, 04/11/2007 Lipid Panel 02/27/2028 02/26/2023, 08/23, 05/20/2017, Additional history exists Colonoscopy 07/13/2032 07/13/2022, [...] filedocumented as of this encounter Care Teams Software Packaging Engineer Relationship Specialty Start Date End Date Jonathan Novak III, MD [address] [place] [address] PCP - General Family Medicine 06/18/16 documented as of this encounter
--- OUTSIDE RECORDS SUMMARY | 2024-01-19 20:17 | External Medical Summary | Summary of Care ---
Author Name Unknown Organization [facility] Address [address] [place] [address] Phone [phone] Care Team Providers Care Appraiser Real Estate Name Role Phone Scarlet PURVIS MD, Sathya Garnica Primary Care Provider [phone] Reason for Visit * Reason Onset Date Comments Medication Refill 12/04/2023 Encounter Details Date Type Department Care Team (Late st Contact Info) Description 12/04/2023 Refill Family Practice [facility] [address] [facility] [place] [address] Sathya Denny III, MD [address] [place] [address] Allergies Active Allergy Reactions Criticality Noted Date Comments Aspirin 09/07/2000 Tingly skin Omeprazole 03/26/2008 Side effects not an allergic reaction: light headed, loopy feeling documented as of this encounter (statuses as of 12/06/2023) Medications Medication Sig Dispensed Refills Start Date End Date Status MULTIVITAMINS PO TABS daily [facility] Performance and Vitality packets 0 10/28/2007 Active VISINE 0.05 % OP SOLN Instill into eye. 0 10/28/2007 Active TIMOLOL MALEATE 0.5 % (DAILY) OP SOLN one drop each eye in morning Active LUMIGAN 0.01 % OP SOLN one deop in each eye in evening Active Tadalafil 20 MG Oral Tablet (Cialis)Indicatio ns:Erectile dysfunction, unspecified erectile dysfunction type 1 TABLET DAILY NEEDED 30 Tablet 3 12/11/2021 Active Sildenafil Citrate 100 MG Oral Tablet (Viagra) 1/2-1 tab 1-4 hours before intercourse, no more than 1 dose in 24 hours. 10 Tablet 5 03/09/2022 Active Hydrocortisone 2.5 % External CreamIndications: Atopic dermatitis, unspecified type Apply topically to affected area 3 times a day. To affected area. 30 g 5 11/26/2022 Active Pantoprazole Sodium 40 MG Oral Tablet Delayed Release (Protonix) TAKE 1 TABLET BY MOUTH ONCE DAILY 30-60 min BEFORE BREAKFAST 90 Tablet 3 09/30/2023 Active Gabapentin 300 MG Oral Capsule (Neurontin) Take 1-2 Capsules by mouth at bedtime. 60 Capsule 2 11/12/2023 Active Fluticasone Propionate 50 MCG/ACT Nasal Suspension Administer 2 Sprays into each nostril in the morning and 2 Sprays before bedtime. 16 g 5 12/06/2023 Active Fluticasone Propionate 50 MCG/ACT Nasal Suspension Administer 2 Sprays into each nostril 2 times a day. 16 g 11 03/03/2021 Discontinue d(Refill) documented as of this encounter (statuses as of 12/06/2023) Active Problems Problem Noted Date Diagnosed Date [...] as of this encounter (statuses as of 12/06/2023) Resolved Problems Problem Noted Date Diagnosed Date Resolved Date Abnormal EKG 10/20/2016 08/04/2018 documented as of this encounter (statuses as of 12/06/2023) Immunizations Name Administration Dates Next Due COVID-19 mRNA, LNP-s, No Pre serve, 2-Dose Series ([employer]) 05/02/2021,09/05/2020,08/15/2020 HEP A - Hepatitis A (Adult [...] Preserve, Inj 02/20/2015,03/23/2014 TD, Preservative Free 04/12/2017 TDAP, Age 7 and older, IM (Adacel) 04/11/2007 Yellow Fever Vaccine, Live (YF-Vax) 10/31/2008 [...] money to get more. Never true 11/25/2022 Childcare Answer Date Recorded Do you feel overwhelmed with taking care of a child, family member or friend? No 11/25/2022 Does your family need help f inding childcare? (Household - for ages 0-17 years) Not on file 11/25/2022 Clothing Answer Date Recorded Have you been unable to get clothing when it was really needed? No 11/25/2022 Is your family able to get c lothes or diapers when needed? (Household - for ages 0-17 years) Not on file 11/25/2022 Personal Safety Answer Date Recorded Do you feel unsafe or have concerns for your saf ety? No 11/25/2022 Do you have concerns for you r family's safety? (Household - for ages 0-17 years) Not on file 11/25/2022 Utilities Answer Date Recorded Do you have trouble paying y our heating, water, or electric bill? (Adult - for ages 18 years and over) Not on file 11/30/2023 Is your family able to pay t he heat, water, or electric bill? (Household - for ages 0-17 years) Not on file 11/30/2023 Does your family have access to good internet? (Household - for ages 0-17 years) Not on file 11/30/2023 Employment Status Answer Date Recorded Are you unemployed or without regular income? No 11/25/2022 Does the household have a [facility] source of income? (Household - for ages 0-17 years) Not on file 11/25/2022 Social Connections Answer Date Recorded How often do you feel lonely or isolated from those around you? (Adult - for ages 18 years and over) Not on file 11/30/2023 Financial Resource Strain Answer Date R ecorded Do you have any trouble payi ng for your medications, or do you think you might in the future? No 11/25/2022 Does your family have troubl e paying for medicine? (Household - for ages 0-17 years) Not on file 11/25/2022 Transportation Needs Answer Date Record ed READ ONLY Do you have troubl e getting a ride to medical visits or work? Sometimes True 11/25/2022 Does your family have a hard time getting a ride to doctors visits? (Household - for ages 0-17 years) Not on file 11/25/2022 Has lack of transportation k ept you from medical appointments, meetings, work, or from getting things needed for daily living? Check all that apply. (Adult - for ages 18 years and over) Not on file 11/25/2022 Do you (or your family) have trouble finding or paying for a ride (transportation)? (Household - for ages 0-17 years) Not on file 11/25/2022 Housing Stability Answer Date Recorded Do you currently live in a s helter or have no steady place to sleep at night? No 11/25/2022 READ ONLY Do you think you a re at risk of becoming homeless? No 11/25/2022 Does your family worry about paying for your home or becoming homeless? (Household - for ages 0-17 years) Not on file 0 11/25/2022 Are you homeless or worried that you might be in the future? (Adult - for ages 18 years and over) Not on file Are you (or your family) bud eless or worried that you might be in the future? (Household - for ages 0-17 years) Not on file Food Insecurity Answer Date Recorded Do you need food for this week? No 11/25/2022 Are you able to get enough f ood for your family? (Household - for ages 0-17 years) Not on file 11/25/2022 Does your family need food t his week? (Household - for ages 0-17 years) Not on file 11/25/2022 Do you always have enough fo od for your family? (Household - for ages 0-17 years) Not on file 11/25/2022 Sex and Gender Information Value Date Recorded Sex Assigned at Male 11/25/2022 10:36 AM EDT Gender Identity Male 11/25/2022 10:36 AM EDT Sexual Orientation Straight 11/25/2022 10 :36 AM EDT Job Start Date Occupation Industry Not on file Not on file Not on file documented as of this encounter Miscellaneous Notes * Telephone Encounter - Geronimo Menjivar [facility] - 12/06/2023 4:06 PM EDTSigned Prescriptions: Disp Refills Fluticasone Propionate 50 MCG/ACT Nasal Polanco*16 g 5 Sig: Administer 2 Sprays into each nostril in the morning and 2 Sprays before bedtime.Authorizing Provider: SATHYA DENNY III User: GERONIMO MENJIVAR documented in this encounter Plan of Treatment Upcoming Encounters Date Type Department Care Team (Late st Contact Info) Description 05/15/2024 12:20 PM EST Office Visit Family Practice [facility] [place] [address] [place] [address] Sathya Denny III, MD [address] [facility] [address] [place] [address] 06/22/2024 11:00 AM EST [facility] [address] [place] [phone] Barby Carrion, [address] [place] [address] Scheduled Procedures Name Priority Associated Diagnoses Date/Ti me COLONOSCOPY FLEXIBLE PROXIMA L DIAGNOSTIC Recall Special screening for malignant neoplasms, colon Colon cancer screening Health Maintenance Due Date Last Done Comments Fecal Occult Blood Test 2005 Sigmoidoscopy 2005 COVID-19 Vaccine ( season) 2023 05/02/2021, 09/05/2020, 08/15/2020 Depression Screening 03/09/2023 03/09/2022 Influenza Vaccine (FLU shot) (#1) 2024 02/26/2023, 02/07/2022, 03/03/2021, Additional history exists Cologuard 04/04/2024 04/04/2021, 11/05/2020, 03/24/2021 Diabetes Screening 02/07/2025 02/07/2022, 0 10/08/2020, 10/08/2020, Additional history exists DTaP,Tdap,and Td Vaccines (3 - Td or Tdap) 04/12/2027 04/12/2017, 04/11/2007 Lipid Panel 02/27/2028 02/26/2023, 04/01/2019, 05/20/2017, Additional history exists Colonoscopy 07/13/2032 07/13/2022, 06/25, 06/16/2010, Additional history exists Colorectal Cancer Screening 07/13/2032 Hepatitis B Vaccine Completed 04/23/2010, 12/18/2009, 10/14/2009 Zoster Vaccines Completed 06/26/2021, 03/03/2021 HPV (Gardasil) Vaccine Aged Out No lo nger eligible based on patient's age to complete [...] filedocumented as of this encounter Care Teams Appraiser Real Estate Relationship Specialty Start Date End Date Sathya Denny III, MD [address] [place] [address] PCP - General Family Medicine 06/18/16 documented as of this encounter
--- OUTSIDE RECORDS SUMMARY | 2024-01-19 20:17 | External Medical Summary | Summary of Care ---
Author Name Unknown Organization [facility] Address [address] [place] [address] Phone [phone] Care Team Providers Care Lead Nitrate Processor Name Role Phone Scarlet PURVIS MD, Jonathan Garnica Primary Care Provider [phone] Encounter Details Date Type Department Care Team (Late st Contact Info) Description 11/12/2023 Telephone Pulmonary Medicine, [facility] [address] [place] [address] Barby Carrion, [address] [place] [address] Allergies Active Allergy Reactions Criticality Noted Date Comments Aspirin 09/07/2000 Tingly skin Omeprazole 03/26/2008 Side effects not an allergic reaction: light headed, loopy feeling documented as of this encounter (statuses as of 11/12/2023) Medications Medication Sig Dispensed Refills Start Date End Date Status MULTIVITAMINS PO TABS daily [facility] Men Performance and Vitality packets 0 10/28/2007 Active VISINE 0.05 % OP SOLN Instill into eye. 0 10/28/2007 Active TIMOLOL MALEATE 0.5 % (DAILY) OP SOLN one drop each eye in morning Active LUMIGAN 0.01 % OP SOLN one deop in each eye in evening Active Fluticasone Propionate 50 MCG/ACT Nasal Suspension [...] at bedtime. 60 Capsule 2 11/12/2023 Active documented as of this encounter (statuses as of 11/12/2023) Active Problems Problem Noted Date Diagnosed Date [...] as of this encounter (statuses as of 11/12/2023) Resolved Problems Problem Noted Date Diagnosed Date Resolved Date Abnormal EKG 10/20/2016 08/04/2018 documented as of this encounter (statuses as of 11/12/2023) Immunizations Name Administration Dates Next Due COVID-19 mRNA, LNP-s, No Pre serve, 2-Dose Series ([employer]) 05/02/2021,09/05/2020,08/15/2020 HEP A - Hepatitis A (Adult [...] y our heating, water, or electric bill? No 11/25/2022 Is your family able to pay t he heat, water, or electric bill? (Household - for ages 0-17 years) Not on file 11/25/2022 Does your family have access to good internet? (Household - for ages 0-17 years) Not on file 11/25/2022 Employment Status Answer Date Recorded Are you unemployed or without regular income? No 11/25/2022 Does the household have a [facility] source of income? (Household - for ages 0-17 years) Not on file 11/25/2022 Social Connections Answer Date Recorded How often do you feel lonely or isolated from th ose around you? Never 11/25/2022 Financial Resource Strain Answer Date R ecorded [...] encounter Miscellaneous Notes * Telephone Encounter - Linda Sandhu OSA - 11/12/2023 1:38 PM EDT Faxed or to [facility] for travel CPAP. Entered Supply order into . documented in this encounter Plan of Treatment Upcoming Encounters Date Type Department Care Team (Late st Contact Info) Description 05/15/2024 12:20 PM EST Office Visit Family Practice [facility] [place] [address] [place] [address] Jonathan Novak III, MD [address] [place] [address] 06/22/2024 11:00 AM EST Office Visit [facility] [place] [address] [place] [phone] Barby Carrionaret, DO [address] [place] [address] Scheduled Procedures Name Priority Associated Diagnoses Date/Ti me COLONOSCOPY FLEXIBLE PROXIMA L DIAGNOSTIC Recall Special screening for malignant neoplasms, colon Colon cancer screening Health Maintenance Due Date Last Done Comments Fecal Occult Blood Test 2005 Sigmoidoscopy 2005 COVID-19 Vaccine ( season) 2023 05/02/2021, 09/05/2020, 08/15/2020 Depression Screening 03/09/2023 03/09/2022 Cologuard 04/04/2024 04/04/2021, 05/2020, 03/24/2021 Diabetes Screening 02/07/2025 02/07/2022, 0 10/08/2020, [...] filedocumented as of this encounter Care Teams Lead Nitrate Processor Relationship Specialty Start Date End Date Scarlet III, Jonathan E, MD [address] [facility] [place] [address] PCP - General Family Medicine 06/18/16 documented as of this encounter
--- OUTSIDE RECORDS SUMMARY | 2024-01-19 20:17 | External Medical Summary | Summary of Care ---
Author Name Unknown Organization [facility] Address [address] [place] [address] Phone [phone] Care Team Providers Care Drill Hand Name Role Phone Scarlet PURVIS MD, Jonathan Garnica Primary Care Provider [phone] Reason for Visit * Reason Onset Date Comments Medication Refill 09/20/2023 Gabapentin 100 mg Encounter Details Date Type Department Care Team (Late st Contact Info) Description 09/20/2023 Telephone Pulmonary Medicine, [facility] [address] [place] [address] Barby Carrion, [address] [place] [address] Medication Refill (Gabapentin 100 mg) Allergies Active Allergy Reactions Criticality Noted Date Comments Aspirin 09/07/2000 Tingly skin Omeprazole 03/26/2008 Side effects not an allergic reaction: light headed, loopy feeling documented as of this encounter (statuses as of 09/20/2023) Medications Medication Sig Dispensed Refills Start Date [...] 3 07/06/2022 Active Hydrocortisone 2.5 % External CreamIndications:At opic dermatitis, unspecified type Apply topically to affected area 3 times a day. To affected area. 30 g 5 11/26/2022 Active documented as of this encounter (statuses as of 09/20/2023) Active Problems Problem Noted Date Diagnosed Date [...] as of this encounter (statuses as of 09/20/2023) Resolved Problems Problem Noted Date Diagnosed Date Resolved Date Abnormal EKG 10/20/2016 08/04/2018 documented as of this encounter (statuses as of 09/20/2023) Immunizations Name Administration Dates Next Due COVID-19 mRNA, LNP-s, No Pre serve, 2-Dose Series ([employer]) 05/02/2021,09/05/2020,08/15/2020 HEP A - Hepatitis A (Adult [...] EDT Office Visit [facility] [address] [place] [phone] Barby Carrion, DO [address] [place] [address] 05/15/2024 12:20 PM EST Office [facility] [place] [address] [facility] [place] [address] Jonathan Novak III, MD [address] [facility] [place] [address] Scheduled Procedures Name Priority Associated Diagnoses Date/Ti [...] filedocumented as of this encounter Care Teams Drill Hand Relationship Specialty Start Date End Date Jonathan Novak III, MD [address] [facility] [place] [address] PCP - General Family Medicine 06/18/16 documented as of this encounter
--- OUTSIDE RECORDS SUMMARY | 2024-01-19 20:17 | External Medical Summary | Summary of Care ---
Author Name Unknown Organization [facility] Address [address] [place] [address] Phone [phone] Care Team Providers Care Bioprocess Development Engineer Name Role Phone Scarlet PURVIS MD, Jonathan Garnica Primary Care Provider [phone] Reason for Visit * Reason Comments Acute Covid Infection vide o Encounter Details Date Type Department Care Team (Late st Contact Info) Description 11/30/2023 5:[address] [facility] [address] [place] [phone] Valeria Lujan PA-C [address] [place] [phone] COVID-19 virus infection* Allergies Active Allergy Reactions Criticality Noted Date Comments Aspirin 09/07/2000 Tingly skin Omeprazole 03/26/2008 Side effects not an allergic reaction: light headed, loopy feeling documented as of this encounter (statuses as of 11/30/2023) Medications Medication Sig Dispensed Refills Start Date [...] as of this encounter (statuses as of 11/30/2023) Active Problems Problem Noted Date Diagnosed Date [...] as of this encounter (statuses as of 11/30/2023) Resolved Problems Problem Noted Date Diagnosed Date Resolved Date Abnormal EKG 10/20/2016 08/04/2018 documented as of this encounter (statuses as of 11/30/2023) Immunizations Name Administration Dates Next Due COVID-19 mRNA, LNP-s, No Pre serve, 2-Dose Series ([employer]) 05/02/2021,09/05/2020,08/15/2020 HEP A - Hepatitis A (Adult > 18 yrs) 04/23/2010, 10/14/2009 Hepatitis B, 20+ yrs 04/23/2010,12/18/2009,10/14 Season Influenza, Cell Cultu re, 18+ Yrs, With Preserv (Flucelvax) 06/19/2013 Seasonal Influenza, PF, 6 M & above, IM , (FluLaval or Fluzone) 02/26/2023,02/07/2022,03/03/2021,2019(Deferred: Patient Refused),07/10/2019,07/04/2018,04/12/20 Seasonal Influenza, Quadriva lent, No Preserve, IM [...] No 11/25/2022 Does the household have a [facility] source [facility] income? (Household - for ages [...] on file documented as of this encounter Progress Notes * Valeria Lujan PA-C - 11/30/2023 4:57 PM EDT Patient location: HOME. I was in a hospital or clinic location. After connecting through [employer],patient was verified with two unique identifiers. Patient (or authorized legal payable representative) was then informed that this was a Telemedicine visit and being conducted confidentially over secure lines. Methods to assure confidentiality were taken. Patient acknowledged consent and understanding of pr ivacy and security of the Telemedicine visit. The patient agreed to participate. Subjective Bang Johnson is a 63 year old male. Chief Complaint Patient presents with Acute Covid Infection video HPI: Cold Symptoms This is a new problem. The current episode started 1 to 4 weeks ago (tested positive 11/19/23 and still testing positive as of 11/28/23). Maximum temperature: 99.8. Associated symptoms include headachesand nausea. Pertinent negatives include no congestion (last week), diarrhea, dysuria, sinus pain, sneezing, swollen glands, vomiting or wheezing. Associated symptoms comments: Balance issues and brain fog. He has tried antihistamine, NSAIDs and acetaminophen for the symptoms. The treatment providedmild relief. PMH: Patient Active Problem List Diagnosis Hemorrhoids, external without complications ADVANCE DIRECTIVE INFORMATION Other specified glaucoma Backache Esophageal reflux IBS (irritable bowel syndrome) Tinnitus Frequent PVCs Orthostatic hypotension IVCD (intraventricular conduction defect) First degree AV block Herpes zoster without complication Current Outpatient Medications Medication Sig Dispense Refill MULTIVITAMINS PO TABS daily [facility] [employer] [facility] Performance and Vitality packets 0 VISINE 0.05 % OP SOLN Instill into eye. 0 TIMOLOL MALEATE 0.5 % (DAILY) OP SOLN one drop each eye in morning LUMIGAN 0.01 % OP SOLN one deop in each eye in evening Fluticasone Propionate 50 MCG/ACT Nasal Suspension Administer 2 Sprays into each nostril 2 times a day. 16 g 11 Tadalafil 20 MG Oral Tablet (Cialis) 1 TABLET DAILY NEEDED 30 Tablet 3 Sildenafil Citrate 100 MG Oral Tablet (Viagra) 1/2-1 tab 1-4 hours before intercourse, no more than1 dose in 24 hours. 10 Tablet 5 Hydrocortisone 2.5 % External Cream Apply topically to affected area 3 times a day. To affected area. 30 g 5 Pantoprazole Sodium 40 MG Oral Tablet Delayed Release (Protonix) TAKE 1 TABLET BY MOUTH ONCE DAILY 30-60 min BEFORE BREAKFAST 90 Tablet 3 Gabapentin 300 MG Oral Capsule (Neurontin) Take 1-2 Capsules by mouth at bedtime. 60 Capsule 2 No current facility-administered medications for this visit. Review of patient's allergies indicates: Allergen Reactions Aspirin Tingly skin Omeprazole Side effects not an allergic reaction: light headed, loopy feeling Review of Systems Constitutional: Positive for appetite change and fatigue. Negative for chills and fever. HENT: Negative for congestion (last week), sinus pain and sneezing. Respiratory: Negative for wheezing. Gastrointestinal: Positive for nausea. Negative for diarrhea and vomiting. Genitourinary: Negative for dysuria. Musculoskeletal: Positive for back pain. Neurological: Positive for dizziness, weakness, light-headedness (balnace is off. he was wrried about driving next week with his job) and headaches. Objective There were no vitals taken for this visit. Physical Exam Constitutional: General: He is not in acute distress. Appearance: Normal appearance. He is normal weight. He is not ill-appearing, toxic-appearing or diaphoretic. Pulmonary: Effort: Pulmonary effort is normal. Neurological: Mental Status: He is alert. Psychiatric: Mood and Affect: Mood normal. No other exam due to video ASSESSMENT/PLAN: COVID-19 virus infection (Primary) Fluids, rest, Tylenol as needed for fever or body aches. May use OTC cough and cold medications as needed. Vit C 1000mg daily and Vit D 1000mg daily. Encourage ambulation. High protein diet as tolerated. Gatorade, Powerade, or Pedialyte as desires. Follow Up: Return for Routine appt as scheduled, As needed with PCP. | For: Routine appt as scheduled, As needed with PCP I spent a total of 20-29 minutes (exact time 21 mins) on the date of service in preparation, delivery, and documentation of the care provided to Bang Johnson excluding any time spent in the performance of separately billed services. Valeria Lujan PA-C documented in this encounter Plan of Treatment Upcoming Encounters Date Type Department Care Team (Late st Contact Info) Description 05/15/2024 12:20 PM EST Office Visit [facility] [place] [address] Jonathan Novak III, MD [address] [facility] [place] [address] 06/22/2024 11:00 AM EST Office Visit [facility]tr [facility] [address] [place] [phone] Barby Carrion DO [address] [place] [address] Scheduled Procedures Name Priority Associated Diagnoses Date/Ti [...] 03/03/2021, Additional history exists Cologuard 04/04/2024 04/04/2021, 11/0 05/2020, 03/24/2021 Diabetes Screening 02/07/2025 02/07/2022, 0 [...] Not on filedocumented as of this encounter Visit Diagnoses Diagnosis COVID-19 virus infection- Primary documented in this encounter Care Teams Bioprocess Development Engineer Relationship Specialty Start Date End Date Jonathan Novak III, MD [address] [place], [place] [address] PCP - General Family Medicine 06/18/16 documented as of this encounter"
--- OUTSIDE RECORDS SUMMARY | 2024-01-19 20:17 | External Medical Summary ---
Author Name Unknown Address Unknown Organization [id number][facility] [place] [facility] [address] [facility] [address] [facility] Report Ordering Provider Test Date Status BRYCEHERNADEZ 08/18/2023 16:30:43 Final Observation Date Value Abnormality Reference (Units ) Status Iron 08/18/2023 16:30:43 88 45-176 (ug /dL) Final Iron-binding capacity 08/18/2023 16:30:43 300 250-425 (ug/dL) Final Transferrin Sat % 08/18/2023 16:30:43 29 15 -55 (%) Final Performing Location [facility] [place] [facility] [address] [facility] [address]
--- OUTSIDE RECORDS SUMMARY | 2024-01-19 20:17 | External Medical Summary | Summary of Care ---
Author Name Unknown Organization [facility] Address [address] [place] [address] Phone [phone] Care Team Providers Care Chief Engineering Division Name Role Phone Scarlet PURVIS MD, Jonathan Garnica Primary Care Provider [phone] Encounter Details Date Type Department Care Team (Late st Contact Info) Description 11/12/2023 Telephone Pulmonary Medicine, [facility] [address] [place] [address] Barby Carrion, [address] [place] [address] Allergies Active Allergy Reactions Criticality Noted Date Comments Aspirin 09/07/2000 Tingly skin Omeprazole 03/26/2008 Side effects not an allergic reaction: light headed, loopy feeling documented as of this encounter (statuses as of 11/12/2023) Medications Medication Sig Dispensed Refills Start Date End Date Status MULTIVITAMINS PO TABS daily [facility] Micah Men Performance and Vitality packets 0 [...] mRNA, LNP-s, No Pre serve, 2-Dose Series (Viveve) 05/02/2021,09/05/2020,08/15/2020 HEP A - Hepatitis A (Adult [...] No 11/25/2022 Does the household have a [facility] source of income? (Household - for [...] 11/12/2023 1:38 PM EDT Faxed or to [facility] for travel CPAP documented in this encounter Plan of Treatment Upcoming Encounters Date Type Department Care Team (Late st Contact Info) Description 05/15/2024 12:20 PM EST Office Visit Family Practice [facility] [place] [address] [place] [address] Jonathan Novak III, MD [address] [place] [address] 06/22/2024 11:00 AM EST [facility] [place] [address] [facility] [place] [phone] Barby Carrion, DO [address] [place] [address] Scheduled Procedures Name Priority Associated Diagnoses Date/Ti [...] filedocumented as of this encounter Care Teams Chief Engineering Division Relationship Specialty Start Date End Date Jonathan Novak III, MD [address] [facility] [place] [address] PCP - General Family Medicine 06/18/16 documented as of this encounter
--- OUTSIDE RECORDS SUMMARY | 2024-01-19 20:17 | External Medical Summary | Summary of Care ---
Author Name Unknown Organization [facility] Address [address] [place] [address] Phone [phone] Care Team Providers Care Apparel Rental Clerk Name Role Phone Scarlet PURVIS MD, Jonathan Garnica Primary Care Provider [phone] Reason for Visit * Reason Onset Date Comments Advice 08/05/2023 Encounter Details Date Type Department Care Team ([facility] st Contact Info) Description 08/05/2023 Telephone Sleep Disorders, [facility] [address] [place] [address] [facility], Nurse Sleep Disorders [address] [place] [address] Advice Allergies Active Allergy Reactions Criticality Noted Date Comments Aspirin 09/07/2000 Tingly skin Omeprazole 03/26/2008 Side effects not an allergic reaction: light headed, loopy feeling documented as of this encounter (statuses as of 08/05/2023) Medications Medication Sig Dispensed Refills Start Date [...] as of this encounter (statuses as of 08/05/2023) Active Problems Problem Noted Date Diagnosed Date [...] as of this encounter (statuses as of 08/05/2023) Resolved Problems Problem Noted Date Diagnosed Date Resolved Date Abnormal EKG 10/20/2016 08/04/2018 documented as of this encounter (statuses as of 08/05/2023) Immunizations Name Administration Dates Next Due COVID-19 mRNA, LNP-s, No Pre serve, 2-Dose Series (Gigalo) 05/02/2021,09/05/2020,08/15/2020 HEP A - Hepatitis A (Adult [...] encounter Miscellaneous Notes * Telephone Encounter - Nesha James, MILAGROS - 08/05/2023 1:[address] Calderon - Is the order placed yesterday for a pressure change or new CPAP? Higinio is entering into [facility] and it looks like the patient just got a new CPAP last year. The DME will probably send it back if it's for a new machine. Please advise. Thank you! documented in this encounter Plan of Treatment Upcoming Encounters Date Type Department Care Team (Late st Contact Info) Description 08/18/2023 3:20 PM EDT Office Visit Sleep Disorders Ctr [facility] [place] [address] [place] [phone] Barby Carrion, [address] [place] [address] 05/15/2024 12:20 PM EST Office [facility] [place] [address] [facility] [place] [address] Jonathan Novak III, MD [address] [facility] [place] [address] Scheduled Procedures Name Priority Associated Diagnoses Date/Ti [...] filedocumented as of this encounter Care Teams Apparel Rental Clerk Relationship Specialty Start Date End Date Jonathan Novak III, MD [address] [facility] [place] [address] PCP - General Family Medicine 06/18/16 documented as of this encounter
--- OUTSIDE RECORDS SUMMARY | 2024-01-19 20:17 | External Medical Summary | Summary of Care ---
Author Name Unknown Organization [facility] Address [address] [place] [address] Phone [phone] Care Team Providers Care Vinyl Dipper Name Role Phone Scarlet PURVIS MD, Jonathan Garnica Primary Care Provider [phone] Reason for Visit * Reason Comments Follow Up Here return sleep. 2 mo. MILAGROS. CPAP. Encounter Details Date Type Department Care Team (Late st Contact Info) Description 11/12/2023 11:40 AM EDT Office Visit Sleep Disorders Ctr [facility] [address] [place] [phone] [facility] [address] [place] [address] Obstructive sleep apnea*; Periodic limb movement sleep disorder; Hypersomnolence Allergies Active Allergy Reactions Criticality Noted Date [...] 03/03/2021 Active Tadalafil 20 MG Oral Tablet (Cialis)Indicatio [...] at bedtime. 60 Capsule 2 11/12/2023 Active Gabapentin 100 MG Oral Capsule (Neurontin) Take 2 Capsules by mouth at bedtime. 60 Capsule 1 09/21/2023 Discontinue d(Refill) documented as of this encounter [...] mRNA, LNP-s, No Pre serve, 2-Dose Series ([employer]) 05/02/2021,09/05/2020,08/15/2020 HEP A - Hepatitis A (Adult [...] No 11/25/2022 Does the household have a [facility] source of income? (Household - for ages [...] on file documented as of this encounter Last Filed Vital Signs Vital Sign Reading Time Taken Comments Blood Pressure 122/66 11/12/2023 11:30 AM EDT Pulse 65 11/12/2023 11:30 AM EDT Temperature 36.2 C (97.2 F) 11/12/2023 11:30 AM E DT Respiratory Rate 16 11/12/2023 11:30 AM EDT Oxygen Saturation 97% 11/12/2023 11:30 AM EDT Inhaled Oxygen Concentration - - Weight 110.7 kg (244 lb) 11/12/2023 11:30 AM EDT Height 185.4 cm (6' 1") 11/12/2023 11:30 AM EDT Body Mass Index 32.19 11/12/2023 11:30 AM EDT documented in this encounter Progress Notes * Barby Carrion, DO - 11/12/2023 12:14 PM EDT Sleep Medicine Follow-Up HISTORY: Bang Johnson is a 63 year old male for follow up of hypersomnolence, PLMD, and MILAGROS. Initially seen 02/19/22 with fatigue, dozing off, loud snoring, choking awakenings (if on his back),frequent nighttime awakenings. [place] 13, FOSQ 31. Hx Brugada. HST 09/09/22: FREDDIE 19.9, SpO2 pankaj 86%, time <89% 8.2 min. 02/26/23: snoring improved with CPAP 5-20, and nightmares and acid reflux seemed to have improved, but no change in sleep quality noted. Persistent daytime sleepiness, [place] 13. Adjusted to 7-12 cwp; consider CPAP titration study if sleepiness does not improve. 05/04/23: EDS persisted despite CPAP use ([place] 18); ordered PSG (w/ CPAP) & MSLT. PAP study 07/05/23: CPAP 7 cwp, PLMI 21.4. MSLT 07/06/23: mean sleep latency 17.32 min, no SOREMPS. 08/18/23: continued CPAP 7-12 cwp, change to heated tubing. Started gabapentin 100-200 mg nightly for PLMD. Using CPAP 7-12 cmH2O, gabapentin 200 mg nightly. He seems to sleep more solidly with the gabapentin, but does not feel better rested. Taking 200 mg nightly, right before getting to bed. No SEs noted. Nighttime awakenings: usually not, but sometimes about an hour before rise time, with difficulty returning to sleep. Still has not received heated tubing. Daytime sleepiness: yes, not much changed, maybe a little less tired, but not much. Drowsy driving: not lately, except with longer trips. [place] Sleepiness Scale: 16 [place] Sleepiness Scale Question 11/12/2023 11:29 AM EDT - Filed by Sarahy Hendricks LPN What is the chance you will doze off in the following situation? Sitting and reading Moderate chance of dozing Watching TV Moderate chance of dozing Sitting inactive in a public place, such as a theater or meeting Moderate chance of dozing As a passenger in a car for an hour without a break High chance of dozing Lying down to rest in the afternoon when circumstances permit High chance of dozing When sitting and talking to someone Slight chance of dozing When sitting quietly after lunch without alcohol High chance of dozing In a car, while stopped for a few minutes in traffic No chance of dozing Score (range: 0 - 24) 16 CPAP Compliance: Report date: 11/11/23 % total days used: 100% % days used > 4 hours: 97% Average hours per day used: 7h 42m Large leak: rare AHI: 1.8 /hr Pressure settin-12 cmH2O Equipment: DME Provider is Charles Uses a [employer] 11. Patient Active Problem List Diagnosis Hemorrhoids, external without complications ADVANCE DIRECTIVE INFORMATION Other specified glaucoma Backache Esophageal reflux IBS (irritable bowel syndrome) Tinnitus Frequent PVCs Orthostatic hypotension IVCD (intraventricular conduction defect) First degree AV block Herpes zoster without complication Current Outpatient Medications Medication Sig Dispense Refill Gabapentin 300 MG Oral Capsule (Neurontin) Take 1-2 Capsules by mouth at bedtime. 60 Capsule 2 Pantoprazole Sodium 40 MG Oral Tablet Delayed Release (Protonix) TAKE 1 TABLET BY MOUTH ONCE DAILY 30-60 min BEFORE BREAKFAST 90 Tablet 3 Hydrocortisone 2.5 % External Cream Apply topically to affected area 3 times a day. To affected area. 30 g 5 Sildenafil Citrate 100 MG Oral Tablet (Viagra) 1/2-1 tab 1-4 hours before intercourse, no more than1 dose in 24 hours. 10 Tablet 5 Tadalafil 20 MG Oral Tablet (Cialis) 1 TABLET DAILY NEEDED 30 Tablet 3 Fluticasone Propionate 50 MCG/ACT Nasal Suspension Administer 2 Sprays into each nostril 2 times a day. 16 g 11 LUMIGAN 0.01 % OP SOLN one deop in each eye in evening TIMOLOL MALEATE 0.5 % (DAILY) OP SOLN one drop each eye in morning MULTIVITAMINS PO TABS daily [facility] Micah Men Performance and Vitality packets 0 VISINE 0.05 % OP SOLN Instill into eye. 0 No current facility-administered medications for this visit. PHYSICAL EXAM: Filed Vitals: 11/12/23 1130 BP: 122/66 Pulse: 65 Resp: 16 Temp: 36.2 C (97.2 F) TempSrc: Tympanic SpO2: 97% Weight: 110.7 kg (244 lb) Height: 1.854 m (6' 1") Body mass index is 32.19 kg/m. General: alert, no acute distress Head: NC/AT Lungs: normal respiratory effort Neuro: speech clear and appropriate ASSESSMENT/PLAN: Hypersomnolence PLMD - increase gabapentin to 300-600 mg nightly. Suggest 300 mg nightly for about the next 2 weeks, andthen if he is well tolerating this and sleepiness has not improved, then try increasing to 600 mg. - reviewed other medications for tx of PLMD, and the possibility of repeating PSG & MSLT if sleepiness does not significantly improve with tx for PLMD. Obstructive sleep apnea - excellent adherence; encourage continued use of CPAP with all sleep - excellent objective efficacy of therapy; continue PAP at current setting 7-12 cmH2O - DME: Charles - Routine cleaning and change of supplies as needed. - Continue to avoid driving when feeling sleepy/drowsy. Follow-up with Sleep Medicine in 2 months. Barby Carrion DO documented in this encounter Nursing Notes * Sarahy Hendricks LPN - 11/12/2023 11:31 AM EDT Chief Complaint Patient presents with Follow Up Here return sleep. 2 mo. MILAGROS. CPAP. [place] Sleepiness Scale Question 11/12/2023 11:29 AM EDT - Filed by Sarahy Hendricks LPN What is the chance you will doze off in the following situation? Sitting and reading Moderate chance of dozing Watching TV Moderate chance of dozing Sitting inactive in a public place, such as a theater or meeting Moderate chance of dozing As a passenger in a car for an hour without a break High chance of dozing Lying down to rest in the afternoon when circumstances permit High chance of dozing When sitting and talking to someone Slight chance of dozing When sitting quietly after lunch without alcohol High chance of dozing In a car, while stopped for a few minutes in traffic No chance of dozing Score (range: 0 - 24) 16 documented in this encounter Plan of Treatment Upcoming Encounters Date Type Department Care Team (Late st Contact Info) Description 05/15/2024 12:20 PM EST Office Visit Family Practice [facility] [address] [facility] [place] [address] Jonathan Novak III, MD [address] [facility] [place] [address] 06/22/2024 11:00 AM EST Office Visit Sleep Disorders Ctr [facility] [address] [place] [phone] Barby Carrion, [address] [place] [address] Scheduled Procedures Name Priority Associated Diagnoses Date/Ti me COLONOSCOPY FLEXIBLE PROXIMA L DIAGNOSTIC Recall Special screening for malignant neoplasms, colon Colon cancer screening Health Maintenance Due Date Last Done Comments Fecal Occult Blood Test 2005 Sigmoidoscopy 2005 COVID-19 Vaccine ( season) 2023 05/02/2021, 09/05/2020, 08/15/2020 Depression Screening 03/09/2023 03/09/2022 Cologuard 04/04/2024 04/04/2021, 11/0 05/2020, 03/24/2021 Diabetes [...] as of this encounter Visit Diagnoses Diagnosis Obstructive sleep apnea- Primary Obstructive sleep apnea (adult) (pediatric) Periodic limb movement sleep disorder Periodic limb movement disorder Hypersomnolence Hypersomnia, unspecified documented in this encounter Care Teams Vinyl Dipper Relationship Specialty Start Date End Date Jonathan Novak III, MD [address] [place] [address] PCP - General Family Medicine 06/18/16 documented as of this encounter
--- OUTSIDE RECORDS SUMMARY | 2024-01-19 20:17 | External Medical Summary | Summary of Care ---
Author Name Unknown Organization [facility] Address [address] [place] [address] Phone [phone] Care Team Providers Care Coat Joiner Lockstitch Name Role Phone Scarlet PURVIS MD, Sathya Garnica Primary Care Provider [phone] Reason for Visit * Reason Onset Date Comments Medication Refill 09/29/2023 Encounter Details Date Type Department Care Team (Late st Contact Info) Description 09/29/2023 Refill Family Practice [facility] [address] [place] [address] John Baker, [address] [place] [address] Encounter for long-term (current) use of medications* Allergies Active Allergy Reactions Criticality Noted Date Comments Aspirin 09/07/2000 Tingly skin Omeprazole 03/26/2008 Side effects not an allergic reaction: light headed, loopy feeling documented as of this encounter (statuses as of 09/30/2023) Medications Medication Sig Dispensed Refills Start Date [...] BEFORE BREAKFAST 90 Tablet 3 09/30/2023 Active Pantoprazole Sodium 40 MG Oral Tablet Delayed Release (Protonix) TAKE 1 TABLET BY MOUTH ONCE DAILY 30-60 min BEFORE BREAKFAST 90 Tablet 3 07/06/2022 Discontinue d(Refill) documented as of this encounter (statuses as of 09/30/2023) Active Problems Problem Noted Date Diagnosed Date [...] as of this encounter (statuses as of 09/30/2023) Resolved Problems Problem Noted Date Diagnosed Date Resolved Date Abnormal EKG 10/20/2016 08/04/2018 documented as of this encounter (statuses as of 09/30/2023) Immunizations Name Administration Dates Next Due COVID-19 mRNA, LNP-s, No Pre serve, 2-Dose Series ([employer]) 05/02/2021,09/05/2020,08/15/2020 HEP A - Hepatitis A (Adult [...] encounter Miscellaneous Notes * Telephone Encounter - Elma Vigil [facility] - 09/30/2023 11:08 AM EDTSigned Prescriptions: Disp Refills Pantoprazole Sodium 40 MG Oral Tablet Urvashi*90 Tab*3 Sig: TAKE 1 TABLET BY MOUTH ONCE DAILY 30-60 min BEFORE BREAKFASTAuthorizing Provider: SATHYA DENNY III EOrderingUser: ELMA VIGIL * Telephone Encounter - Elma Vigil [facility] - 09/30/2023 11:07 AM EDT Per refill protocol patient needs magnesium and vitamin B-12 labs on file within the past 2 years while using PPIs. Lab work ordered. Patient may obtain with next routine labs. Thanks, Elma Vigil, PharmD Clinical Pharmacist [facility] ([facility]) (Formerly Telepharm[facility]) [phone] 09/30/2023 11:07 AM documented in this encounter Plan of Treatment Upcoming Encounters Date Type Department Care Team (Late st Contact Info) Description 01/21/2024 11:40 AM EDT Office Visit Sleep Disorders Ctr [facility] [address] [place] [phone] Barby Carrion DO [address] [place] [place] [address] 05/15/2024 12:20 PM EST Office Visit Family Practice [facility] [place] [address] [place] [address] Sathya Denny III, MD [address] [facility] [place] [address] Scheduled Orders Name Type Priority Associated Diagnoses Orde r Schedule VITAMIN B12 Lab Routine Encounter for long-term (current) use of medications Expected: 10/07/2023, Expires: 09/29/2024 MAGNESIUM Lab Routine Encounter for long-term (current) use of medications Expected: 10/07/2023, Expires: 09/29/2024 Scheduled Procedures Name Priority Associated Diagnoses Date/Ti [...] as of this encounter Visit Diagnoses Diagnosis Encounter for long-term (current) use of medications- Primary Encounter for long-term (current) use of other medications documented in this encounter Care Teams Coat Joiner Lockstitch Relationship Specialty Start Date End Date Sathya Denny III, MD [address] [place] [address] PCP - General Family Medicine 06/18/16 documented as of this encounter
--- OUTSIDE RECORDS SUMMARY | 2024-01-19 20:17 | External Medical Summary | Summary of Care ---
Author Name Unknown Organization [facility] Address [address] [place] [address] Phone [phone] Care Team Providers Care Psychiatric Assistant Name Role Phone Scarlet PURVIS MD, Jonathan Garnica Primary Care Provider [phone] Reason for Visit * Reason Comments Follow Up Review Sleep Study Sleep Apnea Encounter Details Date Type Department Care Team (Late st Contact Info) Description 08/18/2023 3:20 PM EDT Office Visit Sleep Disorders Ctr [facility] [address] [place] [phone] Barby Carrion [address] [place] [address] Obstructive sleep apnea*; Hypersomnolence; Periodic limb movement sleep disorder; Disorder of iron metabolism, unspecified Allergies Active Allergy Reactions Criticality Noted Date Comments Aspirin 09/07/2000 Tingly skin Omeprazole 03/26/2008 Side effects not an allergic reaction: light headed, loopy feeling documented as of this encounter (statuses as of 08/18/2023) Medications Medication Sig Dispensed Refills Start Date [...] as of this encounter (statuses as of 08/18/2023) Active Problems Problem Noted Date Diagnosed Date [...] as of this encounter (statuses as of 08/18/2023) Resolved Problems Problem Noted Date Diagnosed Date Resolved Date Abnormal EKG 10/20/2016 08/04/2018 documented as of this encounter (statuses as of 08/18/2023) Immunizations Name Administration Dates Next Due COVID-19 mRNA, LNP-s, No Pre serve, 2-Dose Series ([employer]) 05/02/2021,09/05/2020,08/15/2020 HEP A - Hepatitis A (Adult [...] Sign Reading Time Taken Comments Blood Pressure 120/64 08/18/2023 3:11 PM EDT Pulse 76 08/18/2023 3:11 PM EDT Temperature 36.5 C (97.7 F) 08/18/2023 3:11 PM ED T Respiratory Rate 16 08/18/2023 3:11 PM EDT Oxygen Saturation 95% 08/18/2023 3:11 PM EDT Inhaled Oxygen Concentration - - Weight 108.9 kg (240 lb) 08/18/2023 3:11 PM EDT Height 185.4 cm (6' 1") 08/18/2023 3:11 PM EDT Body Mass Index 31.66 08/18/2023 3:11 PM EDT documented in this encounter Progress Notes * CarrionBarbyaret, DO - 08/18/2023 3:48 PM EDT Sleep Medicine Follow-Up HISTORY: Bang Johnson is a 63 year old male seen today for follow up after completing sleep testing. Initially seen 02/19/22 with fatigue, dozing off, loud snoring, choking awakenings (if on his back),frequent nighttime awakenings. [place] 13, FOSQ 31. Hx Brugada. HST 09/09/22: FREDDIE 19.9, SpO2 pankaj 86%, time <89% 8.2 min. 02/26/23: snoring improved with CPAP 5-20, and nightmares and acid reflux seemed to have improved, but no change in sleep quality noted. Persistent daytime sleepiness, [place] 13. Adjusted to 7-12 cwp; consider CPAP titration study if sleepiness does not improve. 05/04/23: EDS persisted despite CPAP use ([place] 18); ordered PSG (w/ CPAP) & MSLT. Patient reports no significant change in sleep or overall health in the interim. On the night of the study, he slept okay. On the daytime test, he did not fall asleep as easily as he usually would. There was one time between naps when he got up to walk around because he felt like he might fall asleep. In-laboratory PSG results: Date: 07/05/23 TST: 370.5 minutes AHI(3%/4%): 4.9/0.6 /hr REM AHI (3%/4%): 8.4/0 SpO2 pankaj: 90% PLMI: 21.4 /hr PLMAI: 1.1 /hr PAP titration: Optimal pressure: 7 cm H2O Residual AHI: 4.9 /hr SpO2 pankaj: 90% (at optimal pressure) MSLT 07/06/2023 Mean sleep latency 17.32 minutes No sleep-onset REM periods He has been waking up earlier e.g. 4 AM (planned rise time 7:30 AM), and sleeping off and on for the rest of the night. [place] Sleepiness Scale Question 08/17/2023 3:44 PM EDT - Filed by Patient What is the chance you will doze off in the following situation? Sitting and reading High chance of dozing Watching TV High chance of dozing Sitting inactive in a [...] stopped for a few minutes in traffic Slight chance of dozing Score (range: 0 - 24) 19 Patient Active Problem List Diagnosis Code Hemorrhoids, external without complications K64.4 ADVANCE DIRECTIVE INFORMATION Other specified glaucoma H40.89 Backache M54.9 Esophageal reflux K21.9 IBS (irritable bowel syndrome) K58.9 Tinnitus H93.19 Frequent PVCs I49.3 Orthostatic hypotension I95.1 IVCD (intraventricular conduction defect) I45.4 First degree AV block I44.0 Herpes zoster without complication B02.9 Outpatient Medications Marked as Taking for the 08/18/23 encounter (Office Visit) with Barby Carrion, DO Medication Sig Hydrocortisone 2.5 % External Cream Apply topically to affected area 3 times a day. To affected area. Pantoprazole Sodium 40 MG Oral Tablet Delayed Release (Protonix) TAKE 1 TABLET BY MOUTH ONCE DAILY 30-60 min BEFORE BREAKFAST Sildenafil Citrate 100 MG Oral Tablet (Viagra) 1/2-1 tab 1-4 hours before intercourse, no more than1 dose in 24 hours. Tadalafil 20 MG Oral Tablet (Cialis) 1 TABLET DAILY NEEDED Fluticasone Propionate 50 MCG/ACT Nasal Suspension Administer 2 Sprays into each nostril 2 times a day. LUMIGAN 0.01 % OP SOLN one deop in each eye in evening TIMOLOL MALEATE 0.5 % (DAILY) OP SOLN one drop each eye in morning MULTIVITAMINS PO TABS daily [facility] [employer] Performance and Vitality packets VISINE 0.05 % OP SOLN Instill into eye. PHYSICAL EXAM: Filed Vitals: 08/18/23 1511 BP: 120/64 Pulse: 76 Resp: 16 Temp: 36.5 C (97.7 F) TempSrc: Tympanic SpO2: 95% Weight: 108.9 kg (240 lb) Height: 1.854 m (6' 1") General: alert, no acute distress Head: NC/AT Eyes: sclera and conjunctiva clear Lungs: normal respiratory effort Neuro: speech clear and appropriate ASSESSMENT/PLAN: Obstructive sleep apnea - continue CPAP 7-12 cwp - again order change to heated tubing, as condensation in tubing is limiting ability to adequately increase humidity setting. Hypersomnolence - MSLT was negative, however, patient did not feel this was a good reflection of his typical tendency to fall asleep. - MILAGROS is well treated at current setting, based on both the PSG with CPAP and his home CPAP data - elevated PLMI was seen on PSG, suggestive of PLMD. Will trial tx for PLMD. If this does not improve his hypersomnolence, discussed that a repeat PSG & MSLT may be indicated in future. PLMD - check iron screen w/ ferritin - if ferritin < 75, likely will start iron supplement - if iron/ferritin at goal, will likely start gabapentin 100 -> 200 mg HS (recognizing that additional titration may be needed in future). Discussed SEs. Follow-up with Sleep Medicine in 2 months. Barby Carrion DO documented in this encounter Nursing Notes * Leandra Gastelum LPN - 08/18/2023 3:14 PM EDT Chief Complaint Patient presents with Follow Up Review Sleep Study Sleep Apnea Cpap DME: [facility] [place] Sleepiness Scale Question 08/17/2023 3:44 PM EDT - Filed by Patient What is the chance you will doze off in the following situation? Sitting and reading High chance of dozing Watching TV High chance of dozing Sitting inactive in a [...] stopped for a few minutes in traffic Slight chance of dozing Score (range: 0 - 24) 19 documented in this encounter Plan of Treatment Upcoming Encounters Date Type Department Care Team (Late st Contact Info) Description 01/21/2024 11:40 AM EDT Office Visit Sleep Disorders Ctr [facility] [place] [address] [place] [phone] Barby Carrion DO [address] [place] [address] 05/15/2024 12:20 PM EST Office Visit Family Practice [facility] [place] [address] [facility] [place] [address] Jonathan Novak III, MD [address] [facility] [place] [address] Pending Results Name Type Priority Associated Diagnoses Date /Time IRON SCREEN, INCLUDING TIBC Lab Routine Hypersomnolence Periodic limb movement sleep disorder Disorder of iron metabolism, unspecified 08/18/2023 4:30 PM EDT FERRITIN Lab Routine Hypersomnolence Periodic limb movement sleep disorder Disorder of iron metabolism, unspecified 08/18/2023 4:30 PM EDT Scheduled Procedures Name Priority Associated Diagnoses Date/Ti [...] apnea- Primary Obstructive sleep apnea (adult) (pediatric) Hypersomnolence Hypersomnia, unspecified Periodic limb movement sleep disorder Periodic limb movement disorder Disorder of iron metabolism, unspecified documented in this encounter Care Teams Psychiatric Assistant Relationship Specialty Start Date End Date Jonathan Novak III, MD [address] [facility] [place] [address] PCP - General Family Medicine 06/18/16 documented as of this encounter
--- OUTSIDE RECORDS SUMMARY | 2024-01-19 20:17 | External Medical Summary ---
Author Name Unknown Address Unknown Organization K01:[facility] - [address] [place] [address] Laboratory Report Ordering Provider Test Date Status MARICARMEN WU 08/18/2023 16:30:43 Final Observation Date Value Abnormality Reference (Units ) Status Ferritin 08/18/2023 16:30:43 308 30-400 (ng /mL) Final Performing Location [facility] - [address] [place] [address]
--- OUTSIDE RECORDS SUMMARY | 2024-01-19 20:17 | External Medical Summary | Summary of Care ---
Author Name Unknown Organization [facility] Address [address] [place] [address] Phone [phone] Care Team Providers Care Nuclear Engineering Technician Name Role Phone Scarlet PURVIS MD, Jonathan Garnica Primary Care Provider [phone] Encounter Details Date Type Department Care Team (Late st Contact Info) Description 12/13/2023 Orders Only Outcomes Research Department [address] [place] [address] María Almanzar CHRA [employer] Research Other*[id number] Allergies Active Allergy Reactions Criticality Noted Date Comments Aspirin 09/07/2000 Tingly skin Omeprazole 03/26/2008 Side effects not an allergic reaction: light headed, loopy feeling documented as of this encounter (statuses as of 12/13/2023) Medications Medication Sig Dispensed Refills Start Date End Date Status MULTIVITAMINS PO TABS daily [facility] [employer] Performance and Vitality packets 0 10/28/2007 Active VISINE 0.05 % OP SOLN Instill into eye. 0 10/28/2007 Active TIMOLOL MALEATE 0.5 % (DAILY) OP SOLN one drop each eye in morning Active LUMIGAN 0.01 % OP SOLN one deop in each eye in evening Active Tadalafil 20 MG Oral Tablet (Cialis)Indications [...] before bedtime. 16 g 5 12/06/2023 Active documented as of this encounter (statuses as of 12/13/2023) Active Problems Problem Noted Date Diagnosed Date [...] as of this encounter (statuses as of 12/13/2023) Resolved Problems Problem Noted Date Diagnosed Date Resolved Date Abnormal EKG 10/20/2016 08/04/2018 documented as of this encounter (statuses as of 12/13/2023) Immunizations Name Administration Dates Next Due COVID-19 mRNA, LNP-s, No Pre serve, 2-Dose Series ([employer]) 05/02/2021,09/05/2020,08/15/2020 HEP A - Hepatitis A (Adult [...] No 11/25/2022 Does the household have a re gular source of income? (Household - for ages [...] 12:20 PM EST Office Visit Family Practice [facility] [address] [place] [address] Jonathan Novak III, MD [address] [facility] [place] [address] 06/22/2024 11:00 AM EST Office Visit Sleep Disorders Ctr [facility] [address] [place] [phone] Barby Carrion DO [address] [place] [address] Scheduled Orders Name Type Priority Associated Diagnoses Orde r Schedule MYCODE SUBSEQUENT ADULT Lab Routine [employer] Other*[id number] Every 6 Months for 2 Occurrences starting 12/13/2023 until 01/01/2025 Scheduled Procedures Name Priority Associated Diagnoses Date/Ti [...] 03/03/2021, Additional history exists Cologuard 04/04/2024 04/04/2021, 05/2020, 03/24/2021 Diabetes Screening [...] as of this encounter Visit Diagnoses Diagnosis [employer] Other*[id number] documented in this encounter Care Teams Nuclear Engineering Technician Relationship Specialty Start Date End Date Jonathan Novak III, MD [address] [place] [address] PCP - General Family Medicine 06/18/16 documented as of this encounter
--- OUTSIDE RECORDS SUMMARY | 2024-01-19 20:18 | External Medical Summary | Summary of Care ---
Author Name Unknown Organization [facility] Address [address] [place] [address] Phone [phone] Care Team Providers Care Supervisor [employer] Production Name Role Phone Scarlet PURVIS MD, Jonathan Garnica Primary Care Provider [phone] Reason for Visit * Reason Comments Hypersomulence * Precert (Within 10 days (routine)) - Closed Specialty Diagnoses / Procedures Referred By Contac t Referred To Contact Sleep Disorders Diagnoses Obstructive sleep apnea Hypersomnolence Procedures MULTIPLE SLEEP LATENCY TEST Barby Carrion, DO [address] [place] [address] Referral ID Status Reason Start Date Expiration Date V isits Requested Visits Authorized [id number] Closed Precert 06/16/2023 03/16/2024 1 1 Encounter Details Date Type Department Care Team (Late st Contact Info) Description 07/06/2023 7:00 AM EST [facility]mDiagnostic Sleep Lab, [facility] [address] [place] [address] [facility], Sleep Med Day Study [address] [place] [address] Hypersomnolence*; Obstructive sleep apnea Allergies Active Allergy Reactions Criticality Noted Date Comments Aspirin 09/07/2000 Tingly skin Omeprazole 03/26/2008 Side effects not an allergic reaction: light headed, loopy feeling documented as of this encounter (statuses as of 08/04/2023) Medications Medication Sig Dispensed Refills Start Date [...] 07/06/2022 Active Hydrocortisone 2.5 % External CreamIndications:[facility], unspecified type Apply topically to affected area 3 times a day. To affected area. 30 g 5 11/26/2022 Active documented as of this encounter (statuses as of 08/04/2023) Active Problems Problem Noted Date Diagnosed Date [...] as of this encounter (statuses as of 08/04/2023) Resolved Problems Problem Noted Date Diagnosed Date Resolved Date Abnormal EKG 10/20/2016 08/04/2018 documented as of this encounter (statuses as of 08/04/2023) Immunizations Name Administration Dates Next Due COVID-19 mRNA, LNP-s, No Pre serve, 2-Dose Series ([employer]) 05/02/2021,09/05/2020,08/15/2020 HEP A - Hepatitis A (Adult [...] as of this encounter Progress Notes * Ev Calderon MD - 08/04/2023 4:14 PM EDT [facility] MSLT - Physician Report Name: Bang Johnson MR#: [id number] Date of : 1960 Study Date: 07/06/2023 Report Date: 08/04/23 Study Name: MSLT Acquisition ID: [id number] Referring Physician: Barby Carrion Ordering Physician: Barby Carrion Interpreting Sleep Physician: Ev Calderon Signature: Electronically Signed Testing Location: [facility] Sleep Disorders Center Impression: This is a normal MSLT. The mean sleep latency was 17.32 minutes and there were no sleep onset REM periods. Recommendations: Do not drive, operate heavy machinery, or engage in activities that require full attention if feeling sleepy, drowsy, or otherwise impaired. Follow-up in the sleep clinic. Summarized Clinical Information: 63 year old complaining of excessive sleepiness. Bruce 18/24. Outpatient Medications: Pantoprazole, Sildenafil, Fluticasone, Lumigan, timolol, Multivitamin, Visine, Hydrocortisone Sleep Logs: Scanned into EPIC Preceding Polysomnogram - Summarized Results: Sleep Architecture: Minutes TRT - Total recording time 505.5 Sleep latency 10.5 SPT - Sleep Period Time 493.0 WASO - Wake time after sleep onset 124.5 TST - Total Sleep Time 370.5 R Sleep latency minus wake 112.0 Sleep efficiency 73.3% TST Stage N1 51.0 13.8% Stage N2 254.0 68.6% Stage N3 1.0 0.3% Stage R 64.5 17.41% Naps: Trial 1 Trial 2 Trial 3 Trial 4 Trial 5 Lights OFF 8:09:36 AM 10:00:17 AM 11:51:50 AM 1:42:08 PM 3:35:59 PM Sleep onset (SO) 8:28:36 AM 10:20:23 AM 12:07:50 PM 1:53:38 PM 3:57:05 PM Lights ON 8:44:12 AM 10:20:23 AM 12:23:32 PM 2:09:32 PM 3:57:05 PM Time in Bed 00:34:36 00:20:06 00:31:42 00:27:24 00:21:06 Tot Sleep Time 00:15:36 00:00:00 00:15:12 00:11:30 00:00:00 Sleep latency 00:19:00 00:20:06 00:16:00 00:11:30 00:21:06 REM latency n/a n/a n/a n/a n/a Average sleep latency (5 values) : 00:17:32 Average REM latency (0 values) : N/A Number of Sleep Onset REM Periods (SOREMP) with onset to REM < 5 minutes: None. Onset of REM stage: None Urine Toxicology Screen Test: Negative Technical Considerations: The study was performed and interpreted based on the specifications published by the [employer] (AASM) in 2005. MSLT protocol mean sleep latency values +/- SD (minutes). MSLT 4 naps 10.4 +/- 4.3* MSLT 5 naps 11.6 +/- 5.2* MSLT in patients with Narcolepsy 3.1 +/- 2.9 Ev Calderon MD MATT Board Certified Internal/Sleep Medicine [facility] documented in this encounter Nursing Notes * Aimee Holloway, RPSGT - 07/06/2023 2:18 PM EST The patient had an overnight PSG which is pending interpretation by the sleep physician. Sleep latency was 10.5 minutes. REM latency was 112 minutes with 17 REM periods. Sleep efficiency was 73.3%. Total sleep time was 370.5 minutes. The patient felt their sleep quality and quantity was about the same as their usual night's sleep. The patient was identified by name and . He is here with complaints of nighttime awakenings, excessive daytime sleepiness and dry mouth. The naps were performed with CPAP at 7 cmH2O. Breakfast was at 0630. Urine specimen was sent to the lab at 0958. Lunch was at 1230. The patient was observed between naps to assure wakefulness was maintained. He was on his phone between naps. The patient's MSLT consisted of 5 naps. No SOREMs were observed. Nap #1: Pre-nap statement: want to sleep; foggy Post-nap statements: Did you sleep? yes How long before you fell asleep? 20 minutes Was your sleep interrupted? yes Did anything prevent you from sleeping? no Nap#2: Pre-nap statement: groggy Post-nap statements: Did you sleep? no How long before you fell asleep? N/a Was your sleep interrupted? N/a Did anything prevent you from sleeping? N/a Nap#3: Pre-nap statement: awake but relaxed, not fully alert Post-nap statements: Did you sleep? yes How long before you fell asleep? 10 minutes Was your sleep interrupted? no Did anything prevent you from sleeping? no Nap#4: Pre-nap statement: awake but relaxed, not fully alert Post-nap statements: Did you sleep? yes How long before you fell asleep? 5 minutes Was your sleep interrupted? yes Did anything prevent you from sleeping? no Nap#5: Pre-nap statement: awake but relaxed, not fully alert Post-nap statements: Did you sleep? No How long before you fell asleep? N/a Was your sleep interrupted? N/a Did anything prevent you from sleeping? N/a documented in this encounter Plan of Treatment Upcoming Encounters Date Type Department Care Team (Late st Contact Info) Description 08/18/2023 3:20 PM EDT Office Visit Sleep Disorders Ctr [facility]anna Gillespie, [place] [address] [place] [phone] Barby Carrion DO [address] [place] [address] 05/15/2024 12:20 PM EST Office Visit Family Practice [facility] [place] [address] [place] [address] Jonathan Novak III, MD [address] [place] [address] Scheduled Procedures Name Priority Associated Diagnoses Date/Ti [...] Not on filedocumented as of this encounter Procedures Procedure Name Priority Date/Time Associated Diagnosis Comments TOXICOLOGY, URINESCREEN W/ CONFIRMATION Routine 07/06/2023 9:56 AM EST Obstructive sleep apnea Hypersomnolence documented in this encounter Results * TOXICOLOGY, URINESCREEN W/ CONFIRMATION (07/06/2023 9:56 AM EST) Amphetamines Screen, U Negative Negative 07/06/2023 5:25 PM EST [facility] Benzodiazepines Screen, U Negative Negative 07/06/2023 5:25 PM EST [facility] Cannabinoids Screen, U Negative Negative 07/06/2023 5:25 PM EST [facility] Cocaine Metabolite Screen, U Negative Negative 07/06/2023 5:25 PM EST [facility] Fentanyl Screen, U Negative Negative 2023 5:25 PM EST [facility] Hydrocodone Screen, U Negative Negative 07/06/2023 5:25 PM EST [facility] Methadone Metabolite Screen, U Negative Negative 07/06/2023 5:25 PM EST [facility] Morphine/Codeine Screen, U Negative Negative 07/06/2023 5:25 PM EST [facility] Oxycodone Screen, U Negative Negative 07/06 5:25 PM EST [facility] Urine Urine specimen / Unknown 07/06/2023 9:56 AM EST 07/06/2023 10:08 AM EST Narrative [facility] - 07/06/2023 5:25 PM EST Cutoff Concentrations: Drug Level Amphetamines 500 ng/mL Benzodiazepines 100 ng/mL Cannabinoids 50 ng/mL Cocaine Metabolite 150 ng/mL Fentanyl 1 ng/mL Hydrocodone / Hydromorphone 300 ng/mL Methadone Metabolite 100 ng/mL Morphine / Codeine 300 ng/mL Oxycodone / Oxymorphone 100 ng/mL Screening results are presumptive and can only be used for medical purposes. Positive screening results are reflexed to confirmatory testing. Barby Carrion DO LAB URINE LESLIE GOMEZ [facility] [address] [place] [address] documented in this encounter Visit Diagnoses Diagnosis Hypersomnolence- Primary Hypersomnia, unspecified Obstructive sleep apnea Obstructive sleep apnea (adult) (pediatric) documented in this encounter Care Teams Supervisor Commissary Production Relationship Specialty Start Date End Date Jonathan Novak III, MD [address] [place] [address] PCP - General Family Medicine 06/18/16 documented as of this encounter
--- OUTSIDE RECORDS SUMMARY | 2024-01-19 20:18 | External Medical Summary | Summary of Care ---
Author Name Unknown Organization [facility] Address [address] [place] [address] Phone [phone] Care Team Providers Care Food Preservation Scientist Name Role Phone Scarlet PURVIS MD, Jonathan Garnica Primary Care Provider [phone] Reason for Visit * Reason Comments Sleep Apnea * Precert (Within 10 days (routine)) - Closed Specialty Diagnoses / Procedures Referred By Contac t Referred To Contact Sleep Disorders Diagnoses Obstructive sleep apnea Hypersomnolence Procedures SLEEP STUDY, W/ CPAP (TREATMENT SETTINGS) Barby Carrion, [address] [place] [address] Referral ID Status Reason Start Date Expiration Date V isits Requested Visits Authorized [id number] Closed Precert 06/16/2023 03/16/2024 1 1 Encounter Details Date Type Department Care Team (Late st Contact Info) Description 07/05/2023 7:30 PM EST PulmDiagnostic Sleep Lab, [facility] [address] [facility] [place] [address] [facility], Sleep [facility] [address] [facility] [address] MILAGROS (obstructive sleep apnea)* Allergies Active Allergy Reactions Criticality Noted Date Comments Aspirin 09/07/2000 Tingly skin Omeprazole 03/26/2008 Side effects not an allergic reaction: light headed, loopy feeling documented as of this encounter (statuses as of 08/04/2023) Medications Medication Sig Dispensed Refills Start Date End Date Status MULTIVITAMINS PO TABS daily C Micah Men Performance and Vitality packets 0 [...] mRNA, LNP-s, No Pre serve, 2-Dose Series ([employer]) 05/02/2021,09/05/2020,08/15/2020 HEP A - Hepatitis A (Adult [...] Sign Reading Time Taken Comments Blood Pressure - - Pulse - - Temperature - - Respiratory Rate - - Oxygen Saturation - - Inhaled Oxygen Concentration - - Weight 110.2 kg (243 lb) 07/05/2023 7:35 PM EST Height 185.4 cm (6' 1") 07/05/2023 7:35 PM EST Body Mass Index 32.06 07/05/2023 7:35 PM EST documented in this encounter Progress Notes * Ev Calderon MD - 08/04/2023 4:06 PM EDT [facility] PAP Titration Polysomnogram - Physician Report . Name: Bang Johnson MR#: [id number] Date of : 1960 Study date: 07/05/2023 Report date: 07/06/2023 Study name: Adult Acquisition ID: [id number] Referring Physician: Barby Carrion Ordering Physician: Barby Carrion Interpreting Sleep Physician: Ev Calderon MD Signature: Electronically Signed Testing Location: [facility] . Impression: At a CPAP setting of 7 cmH2O, the apnea-hypopnea and arousal indices were normalized. At this setting, snoring was eliminated and oxygen saturation was maintained above 89 %. Abnormal sleep architecture likely due to respiratory events, PAP therapy and first night effect. Recommendations: CPAP 7 cmH2O using a ResMed AirFit F30 Full Face Mask interface with heated humidification. Weight loss under medical supervision. Advise patient not to drive nor engage in activities that require full attention while drowsy. Clinical Background: 63 year old Male diagnosed with MILAGROS. Weight 243.0 lbs & BMI 32.1 lb/in Marathon Sleepiness Scale 18/24 Neck Size 16.0 inches Comorbidities: GERD, PVCs, orthostatic hypotension, first degree AV block INITIAL DIAGNOSTIC ANALYSIS: Sleep Architecture: Minutes TRT - Total recording time 505.5 Sleep latency 10.5 SPT - Sleep Period Time 493.0 WASO - Wake time after sleep onset 124.5 TST - Total Sleep Time 370.5 R Sleep latency minus wake 112.0 Sleep efficiency 73.3% TST Stage N1 51.0 13.8% Stage N2 254.0 68.6% Stage N3 1.0 0.3% Stage R 64.5 17.41% . Respiratory Event Summary * TST NREM REM ~Supine Supine Prone Left Right Apneas Count 0 0 0 0.00 0 0 0 Index 0.0 0.0 0.0 0.00 0.0 0.0 0.0 Hypopneas (3%) Count 30 21 9 16.00 14 12 4 Index 4.9 4.1 8.4 5.10 4.6 5.3 4.5 Hypopneas (4%) Count 4 4 0 Index 0.6 0.8 0.0 AHI (3%) Count 30 21 9 16.00 14 12 4 Index 4.9 4.1 8.4 5.10 4.6 5.3 4.5 AHI (4%) Count 4 4 0 Index 0.6 0.8 0.0 RDI (3%) (Gasoline Attendant+All Hyp+RERA) Count 30 21 9 16.00 14 12 4 Index 4.9 4.1 8.4 5.10 4.6 5.3 4.5 RDI (4%) (Gasoline Attendant+All Hyp+RERA) Count 4 4 0 Index 0.6 0.8 0.0 Respiratory Related Arousal Count 0 0 0 0.00 0 0 0 Index 0.0 0.0 0.0 0.00 0.0 0.0 0.0 Oxygen Desaturation Count 23 13 6 Index 3.7 2.5 5.6 Arousals: Index Respiratory related 14 2.3/hr PLM related 7 1.1/hr Spontaneous 91 14.7/hr Total 112 18.1/hr Movement Events: Index Total PLMs 132 21.4/hr PLMs associated with arousals 7 1.1/hr . Respiratory Events: Index Central 0 0.0/hr Obstructive 0 0.0/hr Mixed 0 0.0/hr Hypopneas 30 4.9/hr RERA's 0 0.0/hr AHI = Apneas + Hypopneas 30 4.9/hr RDI = Apneas + Hypopneas +RERA's 30 4.9/hr CPAP was started via a medium ResMed AirFit F30 Full Face Mask interface at 5 cmH2O. The pressureswere then gradually titrated to 7 cmH2O. Respiratory events, oxygen desaturations and snoring resolved at a CPAP of 7 cmH2O. Supine position, 64.5 minutes of stage R sleep and improved sleep efficiency were obtained at the recommended pressure. The final AHI at the recommended therapeutic pressure was 4.9 /hour. No episodes of Rony-Vega respiration were found. Oxygenation: Min. Sat. Avg. Sat. Awake - 95% N sleep - 94% REM - 94% Overall 90% 94% Time spent ?88%: 0.00 minutes. Supplemental O2 was not utilized. Body Position Analysis Supine Right Left Side Prone Vertical Total Sleep Time (min.) 182.4 53.0 135.0 188.00 0.1 Total Sleep Time (%) 49.23 14.30 36.44 50.74 0.00 0.03 Total Sleep Time REM (min.) 1.5 0.0 63.0 63.00 0.0 Total Sleep Time NREM (min.) 180.9 53.0 72.0 125.00 0.1 Total Sleep Period (min.) 233.9 99.9 152.5 252.40 0.1 Oximetry Data Min SpO2 value TST: 90% Average SpO2 (TIB): 94% Min SpO2 w/ Respiratory Event: 90% Average SpO2 (TST): 94.00% Desaturations #: 23 Desaturation Index: 3.7 /hr Oximetry Distribution WK NREM REM TIB TST Min % Min % Min % Min % Min % >90% 127.50 94.44 306.00 100.00 64.50 100.00 498.00 98.52 370.50 100.00 80 - 89% 0.00 0.00 0.00 0.00 0.00 0.00 0.00 0.00 0.00 0.00 70 - 79% 0.00 0.00 0.00 0.00 0.00 0.00 0.00 0.00 0.00 0.00 60 - 69% 0.00 0.00 0.00 0.00 0.00 0.00 0.00 0.00 0.00 0.00 50 - 59% 0.00 0.00 0.00 0.00 0.00 0.00 0.00 0.00 0.00 0.00 ?88%* 0.0 0.0 0.0 0.0 0.0 0.0 0.0 0.0 0.00 0.00 Fail (min) 7.5 5.56 0.0 0.00 0.0 0.00 7.5 1.48 0.00 0.00 Cardiac Events: Min bpm Average Pulse Rate During Sleep (TST): 54.0 bpm Highest Pulse Rate During Sleep (TST): 76 bpm Highest Pulse Rate During Recording (TIB): 79 bpm Comments / Artifact / Quality of the Study The polysomnographic recording quality was satisfactory for interpretation. No significant artifacts were found. Technical & Digital Specifications for the Recording and Scoring of Sleep and Associated Events: A standard polysomnogram with and/or without positive airway pressure (PAP) was performed monitoring EEG, EOG, EMG (chin and leg derivations), oxygen saturation, body position, digital video, respiratory effort and airflow. The Sleep Stage and Event scoring was based on the AASM Manual for the Scoring of Sleep and Associated Events, Version 2.5. Apnea in adults is scored when there is a drop in the peak signal excursion by ? 90% of pre-event baseline using an oronasal thermal sensor (diagnosticstudy), PAP device flow (titration study), or an alternative apnea sensor, for ? 10 seconds. Hypopnea in an AHI-4% in adults is scored when the peak signal excursions drop by ? 30% of pre-event baseline using nasal pressure (diagnostic study), PAP device flow (titration study), or an alternative hypopnea sensor, for ? 10 seconds in association with a >4% arterial oxygen desaturation from pre-event baseline. Hypopnea in an AHI-3% in adults is scored when the peak signal excursions drop by ? 30% of pre-event baseline using nasal pressure (diagnostic study), PAP device flow (titration study),or an alternative hypopnea sensor, for ? 10 seconds in association with a >3% arterial oxygen desaturation from pre-event baseline or in association with an arousal. Respiratory effort-related arousals (RERA's) are defined as a sequence of breaths lasting at least 10 seconds characterized by increasing respiratory effort or flattening of the nasal pressure waveform leading to an arousal from sleep when the sequence of breaths which does not meet criteria for an apnea or hypopnea. Apnea Hypopnea Index (AHI) is defined as the number of apneas and hypopneas occurring in an hour of sleep. Respiratory Disturbance Index (RDI) is defined as the number of apneas, hypopneas, and RERA's occurring in an hour of sleep. Pressure Distribution IPAP EPAP TIB Sleep REM Apneas Hypopneas RERAs Indices Min Mean SpO2% duration ( minutes) (min) (min) (min) CA# OA# MA# Index # Index # Index AHI RDI SpO2 SpO2 <95 <90 ?88 <85 <80 <75 5 5 24.2 4.7 0.0 0 0 0 0.0 0 0.0 0 0.0 0.0 0.0 92 93 4.7 7 7 461.9 365.5 64.5 0 0 0 0.0 30 4.9 0 0.0 4.9 4.9 90 94 323.9 Ev Calderon MD MATT Board Certified Internal/Sleep Medicine [facility] documented in this encounter Nursing Notes * Jessy Awad, RPSGT - 07/05/2023 7:36 PM EST No new cough, SOB, flu like symptoms, loss of taste, or loss of smell. No exposure to COVID-19 or flu in the last 14 days. [facility] [place] [facility] Sleep position - No preference No PSG in the past. Home study revealed sleep apnea. Currently using AutoPAP therapy [id number] via low profile FFM - ResMed F30. No sleep aides prior to PSG. Patient has no defibrillator, pacemaker, cochlear implant, or any devices affected by a magnet. Test: Completed Nocturnal Polysomnogram/NPSG with CPAP Marathon total score: 18/24 Neck Circumference: 16 inches Patient received Drowsy Driving Information: yes The patient chose the home care company [facility] Baseline SaO2 97% on 5cmH2O. Baseline HR 49bpm. Sleep onset approximately 10 minutes. Frequent periods of PLMs. Snore level 0 with 0 being no snoreand 5 being loud snore. Frequent periods of PLMs and occasional scattered leg movements. Bradycardia was noted, no other cardiac arrhythmia. 1 bathroom break. Patient has no preferred sleep position. CPAP initiated at 5cmH2O because patient was unsure he would be able to tolerate starting at [id number] ordered. Once patient fell asleep, pressure was changed to 7 per study order. Total sleep time was greater than 6 hours. Estimated AHI was 4.9. Patient will stay for MSLT. documented in this encounter Plan of Treatment Upcoming Encounters Date Type Department Care Team (Late st Contact Info) Description 08/18/2023 3:20 PM EDT Office Visit Sleep Disorders Ctr [facility] [place] [address] [place] [phone] Barby Carrion DO [address] [place] [address] 05/15/2024 12:20 PM EST Office Visit Family Practice [facility] [address] [facility] [place] [address] Jonathan Novak III, MD [address] [facility] [place] [address] Scheduled Orders Name Type Priority Associated Diagnoses Orde r Schedule SLEEP STUDY, W/ CPAP (TREATMENT SETTINGS) Procedures Routine Obstructive sleep apnea Hypersomnolence Ordered: 05/04/2023 Scheduled Procedures Name Priority Associated Diagnoses Date/Ti me COLONOSCOPY FLEXIBLE PROXIMA L DIAGNOSTIC Recall Special screening for malignant neoplasms, colon Colon cancer screening Health Maintenance Due Date Last Done Comments Fecal Occult Blood Test 2005 Sigmoidoscopy 2005 COVID-19 Vaccine ( season) 2023 05/02/2021, 09/05/2020, 08/15/2020 Depression Screening 03/09/2023 03/09/2022 Cologuard 04/04/2024 04/04/2021, 11/05/2020, 03/24/2021 Diabetes Screening [...] as of this encounter Visit Diagnoses Diagnosis MILAGROS (obstructive sleep apnea)- Primary Obstructive sleep apnea (adult) (pediatric) documented in this encounter Care Teams Food Preservation Scientist Relationship Specialty Start Date End Date Jonathan Novak III, MD [address] [place] [address] PCP - General Family Medicine 06/18/16 documented as of this encounter
--- OUTSIDE RECORDS SUMMARY | 2024-01-19 20:18 | External Medical Summary | Summary of Care ---
Author Name Unknown Organization [facility] Address [address] [place] [address] Phone [phone] Care Team Providers Care Slot Machine Mechanic Name Role Phone Scarlet PURVIS MD, Jonathan Garnica Primary Care Provider [phone] Reason for Visit * Reason Onset Date Comments Order Request 08/04/2023 Encounter Details Date Type Department Care Team ([facility] st Contact Info) Description 08/04/2023 Telephone Sleep Lab, [facility] [address] [place], [place] [id number] Ev Calderon MD [address] [place] [address] Order Request Allergies Active Allergy Reactions Criticality Noted Date [...] 07/06/2022 Active Hydrocortisone 2.5 % External CreamIndications:At opi dermatitis, unspecified type Apply topically to affected [...] mRNA, LNP-s, No Pre serve, 2-Dose Series ([employer]) 05/02/2021,09/05/2020,08/15/2020 HEP A - Hepatitis A (Adult [...] PM EDT Office Visit Sleep Disorders Ctr [facility] [address] [facility] [place] [phone] Barby Carrion, [address] [place] [address] 05/15/2024 12:20 PM EST Office Visit Family Practice [facility] [address] [facility] [place] [address] Jonathan Novak III, MD [address] [facility] [place] [address] Scheduled Procedures Name Priority Associated Diagnoses Date/Ti [...] (pediatric) documented in this encounter Care Teams Slot Machine Mechanic Relationship Specialty Start Date End Date Jonathan Novak III, MD [address] [place] [address] PCP - General Family Medicine 06/18/16 documented as of this encounter
[2024-01-19 20:28] LABS: Lyme Ab IgG 2nd Tier Confirm Positive (Negative)
[2024-01-19 20:29] LABS: Lyme Ab IgM 2nd Tier Confirm Positive (Negative)
[2024-01-19] MEDS: GADOBUTROL 65ML VIAL IV ONE (21:17)
[2024-01-19] MEDS: BIMATOPROST 0.01% OP SOLN 2.5 ML BTL OPB SCH (22:02)
[2024-01-19] MEDS: DOXYCYCLINE HYCLATE 100 MG CAP PO SCH (22:02)
[2024-01-19] MEDS: HEPARIN SOD 5,000 UNIT/0.5 ML VIAL SQ SCH (22:02)
[2024-01-19] MEDS: FLUTICASONE PROPIONATE NA SPR 16 GM BTL NAE SCH (22:03)
[2024-01-19] MEDS: cefTRIAXone SODIUM 2,000 MG/50 ML BAG IV SCH (22:03)
--- NOTE | 2024-01-20 00:14 | Magnetic Resonance Report ---
Exam(s): MRI HEAD W/WO Contrast IV Amt: 10mL Gadavist given existing IV EXAM: MR Head Without and With Intravenous Contrast CLINICAL HISTORY: Reason for exam: dizziness, r/o stroke. TECHNIQUE: Magnetic resonance images of the head/brain without and with intravenous contrast in multiple planes. CONTRAST: Patient received 10mL Gadavist given existing IV of IV contrast COMPARISON: CT head 01/19/24 FINDINGS: Brain: No diffusion restriction to suggest acute cerebral ischemia. No acute intracranial hemorrhage. No midline shift. No intracranial mass or abnormal enhancement. Proximal intracranial flow voids appear normal. No significant white matter disease. The 7th and 8th cranial nerve complexes appear normal. Ventricles: Unremarkable. No hydrocephalus. Bones/joints: Unremarkable. No acute fracture. Sinuses: Unremarkable as visualized. Mastoid air cells: Unremarkable as visualized. No mastoid effusion. Orbits: Unremarkable as visualized. IMPRESSION: No acute findings in the head/brain. Electronically signed by: Lou Poe M.D. 01/20/24 00:13 AM
[2024-01-20 06:36] LABS: Basophils # (auto) 0.05 K/uL (0.00-0.20); Basophils % (auto) 0.4 %; Eosinophils # (auto) 0.21 K/uL (0.00-0.50); Eosinophils % (auto) 1.7 %; Hematocrit (blood only) 41.5 % (42.0-52.0); Hemoglobin 14.1 g/dl (14.0-18.0); Immature Granulocytes # (auto) 0.05 K/uL (0.01-0.20); Immature Granulocytes % (auto) 0.4 %; Lymphocytes % (auto) 10.4 %; Mean Corpuscular Hemoglobin 29.7 pg (25.0-34.0); Mean Corpuscular Volume 87.6 fL (80.0-100.0); Mean Platelet Volume 9.1 fL (9.4-12.4); Monocytes # (auto) 0.73 K/uL (0.11-0.59); Monocytes % (auto) 5.8 %; Neutrophils # (auto) 10.15 K/uL (1.40-6.50); Neutrophils % (auto) 81.3 %; Platelet Count 288 K/uL (130-400); RDW Standard Deviation 41.6 fL (36.4-46.3); Red Blood Count 4.74 M/uL (4.70-6.10); White Blood Count 12.49 K/ul (4.8-10.8)
[2024-01-20 07:10] LABS: BUN Creatinine Ratio 12.4 (10-20); Chol HDL Ratio 6.7 (0-5); Est GFR (African American) 87.1 ml/min; Est GFR (Non-African American) 75.2 ml/min; Potassium 4.1 mmol/L (3.5-5.1)
[2024-01-20 07:22] LABS: Estimated Average Glucose 105 mg/dl; Hemoglobin A1C 5.3 % (4.5-5.6)
[2024-01-20] MEDS: ATORVASTATIN 40 MG TAB PO SCH (09:38)
[2024-01-20] MEDS: PANTOprazole 40 MG TAB PO SCH (09:38)
[2024-01-20] MEDS: TIMOLOL MALEATE 0.5% OP SOLN 5 ML BTL OPB SCH (09:39)
--- NOTE | 2024-01-20 11:09 | Cardiology Progress Note ---
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 Previous tracing in 2022 included TN interval of 246 ms as compared to 368 ms at present. Lyme screen positive for both IgG and IgM antibodies. Patient now on empiric Rocephin and doxycycline. Question if presentation is actually due to Lyme carditis first-degree AV block and perhaps intermittent high-grade AV block. Continue IV Rocephin. Patient to remain on telemetry. A resting echocardiogram has been ordered. Repeat EKG tomorrow. LDL cholesterol minimally elevated 138 mg/dL. At present this does not appear to be an acute ischemic stroke. Will hold off on statin therapy per patient preference. DVT prophylaxis: Subcutaneous heparin Admission and Anticipated Discharge Date Admission Date: January 19, 2024 Subjective Patient seen in cardiology follow up of near syncope. Denies chest discomfort. Last evening while having MRI, patient had what sounds like a vasovagal episode after the administration of gadolinium with transient loss of consciousness. He has not had any episodes that have reproduced his symptoms that prompted him to come to the emergency room yesterday. Telemetry reveals sinus rhythm in the 80s. Occasional isolated premature ventricular contractions. At 828 this morning and 2-second sinus pause was noted. Ongoing first-degree AV block noted. Physical Exam Physical Exam: General: no acute distress and stated age Eyes: conjunctiva are pink and non-injected, sclera clear Neck: normal jugular venous pulse, no hepatojugular reflux Chest: normal shape and normal respiratory effort Lungs: clear to auscultation and percussion Cardiac Exam: - regular heart sounds, no murmurs, rubs, or gallops, no jugular venous distention Abdomen: abdomen soft, non-tender, no abnormal masses and no hepatosplenomegaly Musculoskeletal: no gait disturbance, no weakness Extremities: no edema and no cyanosis Neuro:awake, conversant, follows commands, no focal motor deficits Psych: appropriate affect and insight. Results & Data Vital Signs (Past 12 Hours) Vital Signs Temp Pulse Pulse Resp BP Pulse Ox O2 Del Method 01/20/24 07:52 77 01/20/24 07:07 36.7 C 72 20 113/65 96 Room Air 01/20/24 02:57 36.7 C 69 16 132/75 98 Room Air Laboratory Results Lipids 01/20/24 Range/Units 05:34 Triglycerides 138 (0-150) mg/dl Cholesterol 195 (0-200) mg/dl HDL Cholesterol 29 mg/dl Cholesterol/HDL Ratio 6.7 H (0-5) CBC 01/20/24 Range/Units 05:34 WBC 12.49 H (4.8-10.8) K/ul RBC 4.74 (4.70-6.10) M/uL Hgb 14.1 (14.0-18.0) g/dl Hct 41.5 L (42.0-52.0) % Plt Count 288 (130-400) K/uL Neut # (Auto) 10.15 H (1.40-6.50) K/uL Lymph # (Auto) 1.30 (1.20-3.40) K/uL Bollinger # (Auto) 0.73 H (0.11-0.59) K/uL Eos # (Auto) 0.21 (0.00-0.50) K/uL Baso # (Auto) 0.05 (0.00-0.20) K/uL Comprehensive Metabolic Panel 01/20/24 Range/Units 05:34 Sodium 138 (136-145) mmol/L Potassium 4.1 (3.5-5.1) mmol/L Chloride 106 (98-107) mmol/L Carbon Dioxide 23 (21-32) mmol/L BUN 13 (6-23) mg/dl Creatinine 1.05 (0.6-1.4) mg/dl Glucose 105 H (70-99(Fasting)) mg/dl Calcium 9.0 (8.6-10.3) mg/dl Intake and Output 01/19/24 01/20/24 01/20/24 22:59 06:59 14:59 Intake Total 50 0 600 / 1650 Balance 50 0 600 / 1650 Intake: IV 50 / 1050 [id number] SODIUM 2,000 mg In 50 / 50 50 ml @ 100 mls/hr IV Q24H AMBER Rx#:[id number] Oral 600 / 600 Other: # Unmeasured Voids 2 Weight 108 kg 103.4 kg Weight Measurement Method Chair Scale Built in [facility] Diagnostic Findings MRI of the brain without any acute process
--- NOTE | 2024-01-20 14:36 | Neurology Consultation ---
Date of Consultation January 20, 2024 Assessment & Plan (1) Near syncope: Suspect these events are cardiogenic. CTA of the head and neck was reviewed and shows no stenosis or occlusion. MRI of the brain shows no evidence of acute or chronic infarcts. Plan Continue with cardiology recommendations. Continue to treat Lyme disease, this is not likely to be affecting his central nervous system. No deficits and no abnormalities on MRIs and CTAs. Telehealth Consultation Telehealth Information Telehealth Information: I performed this visit using a real-time telehealth connection between my location and the patients location ([facility]). After connecting through interactive tele-video, patient was identified by name and date of and/or wristband check.Patient (or authorized healthcare correspondence representative) was informed that this was a telemedicine visit and it was being conducted confidentially over secure lines. My office door was closed and no one else was present in the room with me.Patient (or authorized healthcare correspondence representative) provided consent to proceed with the visit, expressed an understanding of privacy and security of the telemedicine visit, and gave permission to have a hospital correspondence representative in the room in order to assist with the visit and to conduct portions of the visit, as needed. I informed the patient (or authorized healthcare correspondence representative) that I reviewed their record and presented the opportunity for them to ask any questions regarding the visit today. The patient agreed to participate. History of Present Illness Reason for Consultation: Presyncopal episodes Requesting Physician: Adolfo Ruelas MD Attending Physician: Adolfo Ruelas MD History of Present Illness Alex Yanez is a 63-year-old male patient with PMH of first-degree AV block, Brugada pattern, history of Lyme disease, recent history of COVID, history of restless leg syndrome. Who presents today reporting episodes of presyncope .He stated that he woke up yesterday not feeling all that well,. He started having episodes where his vision would dim at the periphery and he will feel like he is going to pass out. This happened several times and it was not associated with position, it could happen while sitting or standing. He also noticed that over the past several days he has not been feeling well, he is having increased heart rate whenever he goes out walks the dog or do any activity. He denies any focal neurological deficits such as numbness or weakness, denies any balance problems, he thinks that his symptoms have resolved however he is since he was admitted to the hospital. Allergies Allergy/AdvReac Type Severity Reaction Status Date / Time aspirin Allergy Mild Unverified 06/28/09 04:28 Home Medications Medication Instructions Recorded Confirmed Type Multivitamin 1 tab PO DAILY ##0 03/07/08 01/19/24 History Omeprazole (Prilosec) 40 mg PO UD ##0 03/07/08 01/19/24 History Travoprost (Travatan Oph Soln 1 drp ophthalmic (eye) UD ##0 03/07/08 01/19/24 History 0.004% *) bimatoprost 0.03 % eye drops 1 drp OPB HS 01/19/24 01/19/24 History fluticasone propionate 50 2 spray intranasal BID 01/19/24 01/19/24 History mcg/actuation nasal spray,suspension gabapentin 300 mg capsule 300 - 600 mg PO HS 01/19/24 01/19/24 History pantoprazole 40 mg tablet,delayed 40 mg PO QAM 01/19/24 01/19/24 History release timolol maleate 0.5 % eye drops 1 drp OPB QAM 01/19/24 01/19/24 History Patient History Social History Smoking Status: Never smoker Hx Alcohol Use: No Hx Substance Use: No Preferred Language: Montenegrin Communication Ability: Effective 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 Beliefs That Will Affect Care: None Current Living Situation: Spouse Feels Safe at Home: Yes Safety Concerns: Feels Safe At This Time Assistive Devices: None Review of Systems Constitutional: Patient denies weight loss, fever, chills, and night sweats Eyes: Patient denies change in vision, tearing, pain, and redness ENT: Patient denies pain, bleeding, rhinorrhea, and dysphagia Cardiovascular: Patient denies chest pain, +++palpitation, dyspnea at rest, and dyspnea with exertion Respiratory: Patient denies shortness of breath, cough, wheezing, and productive cough GI: Patient denies reflux, pain, constipation, and diarrhea Skin: Patient denies rash, dryness, and itching Allergies/Immune System: Patient denies rhinorrhea, seasonal allergies, reaction to current MEDS, and joint swelling Endocrine: Patient denies weight loss, weight gain, temperature intolerance, and excessive thirst Neurological: All negative unless mentioned in the HPI Physical Exam General Constitutional: Appearance normally developed Head and face: normocephalic and atraumatic Eyes: no ptosis, no anisocoria, and no dysconjugate gaze Respiratory: normal effort Cardiovascular: regular rhythm and regular rate Abdomen: non distended Skin: no rashes, lesions, or ulcers noted Psychiatric: normal judgement and insight, normal mood, and normal affect NEUROLOGIC EXAMINATION: Mental Status:alert, oriented to time, place, person, normal recent memory, normal remote memory, normal attention span, normal concentration, normal language and normal fund of knowledge Cranial Nerves: CN 2 - no visual defect on confrontation and pupils round, equal, reactive to light CN 3, 4, 6 - extra-ocular movements intact and no nystagmus CN 5 - facial sensation intact CN 7 - no facial asymmetry CN 8 - intact hearing CN 9, 10 - palate symmetric, normal gag CN 11 - good shoulder shrug CN 12 - tongue midline MOTOR: Strength was at least antigravity throughout, Pronator drift was absent and There were no abnormal movements SENSATION: intact and symmetric to pinprick, light touch, vibration and joint position GAIT: stable, no ataxia and can perform tandem walking COORDINATION: no ataxia with finger to nose testing and heel to jonas testing REFLEXES: cannot assess over telemedicine NIH Stroke Scale: 1a. Level of Consciousness: alert = 0 1b. LOC Questions: (month, age): both correct = 0 1c. LOC Commands (open and close eyes, make fist and let go using non-paretic hand): obeys both correctly = 0 2. Best Gaze (eyes open and patient follows examiner's finger or face): normal = 0 3. Visual (visual threat or finger counting in each quadrant): no loss = 0 4. Facial Palsy (show teeth, raise eye brows and squeeze eyes shut, or grimace symmetry in a comatose patient): normal = 0 5a. Motor Arm (extend arm (palms down) to 90 degrees and score drift/movement (10 seconds) - Left: no drift = 0 5b. Motor Arm: (extend arm (palms down) to 90 degrees and score drift/movement (10 seconds) - Right: no drift = 0 6a. Motor Leg (elevate leg 30 degrees and score drift/ movement (5 seconds) - Left: no drift = 0 6b. Motor Leg (elevate leg 30 degrees and score drift/ movement (5 seconds) - Right: no drift = 0 7. Limb Ataxia (finger to nose, heel down jonas): absent = 0 8. Sensory (pin prick to face, arm, trunk and leg, compare side to side): normal = 0 9. Best Language: no aphasia = 0 10. Dysarthria (evaluate speech clarity by patient repeating listed words): normal articulation = 0 11. Extinction and Inattention: no neglect = 0 Total: 0 Results & Data Vital Signs (Past 12 Hours) Vital Signs Temp Pulse Pulse Resp BP Pulse Ox O2 Del Method 01/20/24 11:26 36.5 C 65 19 102/68 96 Room Air 01/20/24 07:52 77 01/20/24 07:07 36.7 C 72 20 113/65 96 Room Air 01/20/24 02:57 36.7 C 69 16 132/75 98 Room Air Laboratory Results Laboratory Results - last 24 hr 01/19/24 01/20/24 10:35 05:34 WBC 12.49 H RBC 4.74 Hgb 14.1 Hct 41.5 L MCV 87.6 MCH 29.7 MCHC 34.0 RDW Std Deviation 41.6 RDW Coeff of Shania 13.0 Plt Count 288 MPV 9.1 L Immature Gran % (Auto) 0.4 Neut % (Auto) 81.3 Lymph % (Auto) 10.4 [place] % (Auto) 5.8 Eos % (Auto) 1.7 Baso % (Auto) 0.4 Neut # (Auto) 10.15 H Lymph # (Auto) 1.30 [place] # (Auto) 0.73 H Eos # (Auto) 0.21 Baso # (Auto) 0.05 Immature Gran # (Auto) 0.05 Sodium 138 Potassium 4.1 Chloride 106 Carbon Dioxide 23 Anion Gap 9 BUN 13 Creatinine 1.05 Est Cr Clr Drug Dosing 91.0 Est GFR ( Amer) 87.1 Est GFR (Non-Af Amer) 75.2 BUN/Creatinine Ratio 12.4 Glucose 105 H Estimat Average Glucose 105 Hemoglobin A1c 5.3 Calcium 9.0 Phosphorus 3.0 Magnesium 2.0 Triglycerides 138 Cholesterol 195 LDL Cholesterol, Calc 138 VLDL Cholesterol, Calc 28 HDL Cholesterol 29 Cholesterol/HDL Ratio 6.7 H Anaplasma Smear See Comment A. phagocytophilum DNA Pending Babesia Smear See Comment Babesia microti DNA PCR Pending Lyme Disease Screen Positive H Lyme Tier 2 IgG Confirm Positive H Lyme Tier 2 IgM Confirm Positive H Diagnostic Findings Brain MRI 01/19/24 15:28 Exam(s): MRI HEAD W/WO Contrast IV Amt: 10mL Gadavist given existing IV EXAM: MR Head Without and With Intravenous Contrast CLINICAL HISTORY: Reason for exam: dizziness, r/o stroke. TECHNIQUE: Magnetic resonance images of the head/brain without and with intravenous contrast in multiple planes. CONTRAST: Patient received 10mL Gadavist given existing IV of IV contrast COMPARISON: CT head 01/19/24 FINDINGS: Brain: No diffusion restriction to suggest acute cerebral ischemia. No acute intracranial hemorrhage. No midline shift. No intracranial mass or abnormal enhancement. Proximal intracranial flow voids appear normal. No significant white matter disease. The 7th and 8th cranial nerve complexes appear normal. Ventricles: Unremarkable. No hydrocephalus. Bones/joints: Unremarkable. No acute fracture. Sinuses: Unremarkable as visualized. Mastoid air cells: Unremarkable as visualized. No mastoid effusion. Orbits: Unremarkable as visualized. IMPRESSION: No acute findings in the head/brain. Electronically signed by: Lou Poe M.D. 01/20/24 00:13 AM Medications Administered Home Medications Medication Instructions Recorded Confirmed Last Taken Multivitamin 1 tab PO DAILY ##0 03/07/08 01/19/24 Unknown Omeprazole (Prilosec) 40 mg PO UD ##0 03/07/08 01/19/24 Unknown Travoprost (Travatan Oph Soln 1 drp ophthalmic (eye) UD ##0 03/07/08 01/19/24 Unknown 0.004% *) bimatoprost 0.03 % eye drops 1 drp OPB 01/19/24 01/19/24 Unknown fluticasone propionate 50 2 spray intranasal BID 01/19/24 01/19/24 Unknown mcg/actuation nasal spray,suspension gabapentin 300 mg capsule 300 - 600 mg PO 01/19/24 01/19/24 Unknown pantoprazole 40 mg tablet,delayed 40 mg PO QAM 01/19/24 01/19/24 Unknown release timolol maleate 0.5 % eye drops 1 drp OPB QA 01/19/24 01/19/24 Unknown Active Medications Generic Name Dose Route Start Last Admin Trade Name Freq PRN Reason Stop Dose Admin Bimatoprost 1 drops 01/19/24 21:00 01/19/24 22:02 Bimatoprost 0.01% Op Soln 2.5 Ml Btl OPB 02/18/24 20:59 1 drops HS AMBER Administration Protocol Doxycycline Hyclate 100 mg 01/19/24 21:00 01/20/24 09:39 Doxycycline Hyclate 100 Mg Cap PO 01/29/24 20:59 100 mg BID AMBER Administration Fluticasone Propionate 2 sprays 01/19/24 21:00 01/20/24 09:38 Fluticasone Propionate Na Spr 16 Gm Btl MARCELLE 02/18/24 20:59 Not Given BID AMBER Heparin Sodium (Porcine) 5,000 units 01/19/24 21:00 01/20/24 09:39 Heparin Sod 5,000 Unit/0.5 Ml Vial SQ 02/18/24 20:59 5,000 units Q12 AMBER Administration Ceftriaxone Sodium 2,000 mg in 50 mls @ 100 mls/hr 01/19/24 20:00 01/19/24 22:33 Rocephin IV 01/29/24 19:59 Infused Q24H AMBER Infusion Pantoprazole Sodium 40 mg 01/20/24 09:00 01/20/24 09:38 Pantoprazole 40 Mg Tab PO 02/19/24 08:59 40 mg QAM AMBER Administration Timolol Maleate 1 drops 01/20/24 09:00 01/20/24 09:39 Timolol Maleate 0.5% Op Soln 5 Ml Btl OPB 02/19/24 08:59 1 drops QAM AMBER Administration
--- NOTE | 2024-01-20 17:28 | Hospitalist Progress Note ---
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 Pt was a stroke alert and was not a TNK candidate. Persistent Dizziness Doubt any stroke/strokelike symptoms-stroke has been ruled out Pt presenting with persistent dizziness Head CT, head and neck CTA all without acute findings Brain MRI -no acute findings Echo pending Orthostatic vitals-unremarkable Continue to monitor on telemetry Unremarkable clinically much better without any more dizziness and/or arrhythmias on monitor Appreciate neurology input and recommendation to continue with cardiology recommendation for symptoms of dizziness Lyme disease with possible Lyme carditis Lyme titer immunoglobin M and G are positive Will be confirmed with Western blot Has been on intravenous ceftriaxone and doxycycline Will monitor in the telemetry unit will Hx of Type 1 Brugada changes on EKG SCN5A gene positive EKG with Type 1 Brugada changes Echo pending Continue with telemetry monitoring Cardiology consulted, appreciate recs Continue other home meds as ordered. CODE STATUS: Full code DVT prophylaxis: Heparin SQ Diet: HH after dysphagia screen Dispo: admit to PCU/tele Admission and Anticipated Discharge Date Admission Date: January 19, 2024 Subjective 01/20/2024 The patient was seen and examined in telemetry unit He was admitted with dizzy spells without any palpitation or chest pain Noted to have first-degree AV block with significant pauses at times Has been feeling much better during my examination this afternoon Review of Systems Review of Systems: All systems reviewed and are unremarkable except as noted below Physical Exam Constitutional: Lying in bed without any acute distress Eyes: PERRL, conjunctivae normal, anicteric sclerae Neck: trachea midline, no thyromegaly Respiratory: no respiratory distress Auscultation: lungs clear to auscultation bilaterally Cardiovascular: Rate/Rhythm: regular rate and regular rhythm; not tachycardic Heart Sounds: normal S1 and normal S2; no murmur Extremities: no edema Gastrointestinal (Abdomen): Inspection/Auscultation: normal bowel sounds; abdomen not distended Percussion/Palpation: abdomen soft; abdomen nontender Musculoskeletal: No acute arthritis involving any of the joint Neurologic: normal touch/pain/proprioception and moves all extremities; no focal motor deficits and not confused Psychiatric: A+Ox3, euthymic affect Lymphatic: no cervical or axillary lymphadenopathy Results & Data Results & Data Vital Signs (Past 12 Hours) Vital Signs Temp Pulse Pulse Resp BP Pulse Ox O2 Del Method 01/20/24 15:20 36.5 C 64 18 111/72 96 Room Air 01/20/24 11:26 36.5 C 65 19 102/68 96 Room Air 01/20/24 07:52 77 01/20/24 07:07 36.7 C 72 20 113/65 96 Room Air Laboratory Results Short CBC 01/20/24 Range/Units 05:34 WBC 12.49 H (4.8-10.8) K/ul Hgb 14.1 (14.0-18.0) g/dl Hct 41.5 L (42.0-52.0) % Plt Count 288 (130-400) K/uL BMP 01/20/24 05:34 Sodium 138 Potassium 4.1 Chloride 106 Carbon Dioxide 23 BUN 13 Creatinine 1.05 Glucose 105 H Calcium 9.0 Medications Administered Current Inpatient Medications Bimatoprost (Bimatoprost 0.01% Op Soln 2.5 Ml Btl) 1 drops OPB HS AMBER; Protocol Stop: 02/18/24 20:59 Last Admin: 01/19/24 22:02 Dose: 1 drops Doxycycline Hyclate (Doxycycline Hyclate 100 Mg Cap) 100 mg PO BID AMBER Stop: 01/29/24 20:59 Last Admin: 01/20/24 09:39 Dose: 100 mg Fluticasone Propionate (Fluticasone Propionate Na Spr 16 Gm Btl) 2 sprays MARCELLE BID AMBER Stop: 02/18/24 20:59 Last Admin: 01/20/24 09:38 Dose: Not Given Heparin Sodium (Porcine) (Heparin Sod 5,000 Unit/0.5 Ml Vial) 5,000 units SQ Q12 AMBER Stop: 02/18/24 20:59 Last Admin: 01/20/24 09:39 Dose: 5,000 units Ceftriaxone Sodium (Rocephin) 2,000 mg in 50 mls @ 100 mls/hr IV Q24H AMBER Stop: 01/29/24 19:59 Last Infusion: 01/19/24 22:33 Dose: Infused Pantoprazole Sodium (Pantoprazole 40 Mg Tab) [facility] Stop: 02/19/24 08:59 Last Admin: 01/20/24 09:38 Dose: 40 mg Timolol Maleate (Timolol Maleate 0.5% Op Soln 5 Ml Btl) [address] [facility] Stop: 02/19/24 08:59 Last Admin: 01/20/24 09:39 Dose: 1 drops
[2024-01-20] MEDS ORDERED: CYANOCOBALAMIN (B-12) 500 MCG TABLET PO SCH (17:45)
[2024-01-20] MEDS: GABAPENTIN 300 MG CAP PO SCH (20:18)
[2024-01-21 07:35] LABS: Basophils # (auto) 0.06 K/uL (0.00-0.20); Basophils % (auto) 1.2 %; Eosinophils # (auto) 0.26 K/uL (0.00-0.50); Eosinophils % (auto) 5.3 %; Hematocrit (blood only) 43.1 % (42.0-52.0); Hemoglobin 14.4 g/dl (14.0-18.0); Immature Granulocytes # (auto) 0.01 K/uL (0.01-0.20); Immature Granulocytes % (auto) 0.2 %; Lymphocytes # (auto) 2.08 K/uL (1.20-3.40); Lymphocytes % (auto) 42.1 %; Mean Corpuscular Hemoglobin 29.8 pg (25.0-34.0); Mean Corpuscular Hgb Conc 33.4 g/dL (32.0-36.0); Mean Platelet Volume 8.6 fL (9.4-12.4); Monocytes # (auto) 0.38 K/uL (0.11-0.59); Monocytes % (auto) 7.7 %; Neutrophils # (auto) 2.15 K/uL (1.40-6.50); Neutrophils % (auto) 43.5 %; Platelet Count 282 K/uL (130-400); RDW Coefficient of Variation 13.1 % (11.5-14.5); RDW Standard Deviation 42.5 fL (36.4-46.3); Red Blood Count 4.84 M/uL (4.70-6.10); White Blood Count 4.94 K/ul (4.8-10.8)
[2024-01-21 07:55] LABS: BUN Creatinine Ratio 13.3 (10-20); Calcium 9.1 mg/dl (8.6-10.3); Creatinine Clr Calc Pharmacy 84.5 ml/min; Est GFR (African American) 79.7 ml/min; Est GFR (Non-African American) 68.8 ml/min; Magnesium 2.2 mg/dl (1.7-2.4); Potassium 3.9 mmol/L (3.5-5.1)
[2024-01-21 08:09] LABS: Thyroid Stimulating Hormone 6.169 uIu/ml (0.300-4.500)
[2024-01-21] MEDS: POLYETHYLENE (MIRALAX) 17 GM PACK PO SCH (09:29)
--- NOTE | 2024-01-21 12:25 | Cardiology Progress Note ---
Date of Service January 21, 2024 Assessment & Plan (1) Acute Lyme disease: (2) Near syncope: (3) Brugada pattern on electrocardiogram: (4) PVCs (premature ventricular contractions): (5) First degree atrioventricular block: Plan: Patient to remain in the hospital for the time being on IV Rocephin. Ambulate in saldana as tolerated. Repeat EKG in am of 01/22/24. Case discussed with Dr Ruelas for the purpose of coordination of care. DVT prophylaxis: Subcutaneous heparin Admission and Anticipated Discharge Date Admission Date: January 19, 2024 Subjective Patient seen in cardiology follow-up. Feeling well, no recurrent lightheaded or dizzy episodes. No prolonged pauses noted on telemetry. Sinus rhythm with first-degree AV block observed. Physical Exam Physical Exam: General: no acute distress and stated age Eyes: conjunctiva are pink and non-injected, sclera clear Neck: normal jugular venous pulse, no hepatojugular reflux Chest: normal shape and normal respiratory effort Lungs: clear to auscultation and percussion Cardiac Exam: - regular heart sounds, no murmurs, rubs, or gallops, no jugular venous distention Abdomen: abdomen soft, non-tender, no abnormal masses and no hepatosplenomegaly Musculoskeletal: no gait disturbance, no weakness Extremities: no edema and no cyanosis Neuro:awake, conversant, follows commands, no focal motor deficits Psych: appropriate affect and insight. Results & Data Vital Signs (Past 12 Hours) Vital Signs Temp Pulse Pulse Resp BP Pulse Ox O2 Del Method 01/21/24 10:48 66 01/21/24 10:29 36.6 C 61 16 114/71 94 Room Air 01/21/24 07:50 36.7 C 63 16 108/68 95 Room Air 01/21/24 03:14 36.7 C 59 L 17 108/71 98 CPAP Laboratory Results CBC 01/21/24 Range/Units 07:02 WBC 4.94 (4.8-10.8) K/ul RBC 4.84 (4.70-6.10) M/uL Hgb 14.4 (14.0-18.0) g/dl Hct 43.1 (42.0-52.0) % Plt Count 282 (130-400) K/uL Neut # (Auto) 2.15 (1.40-6.50) K/uL Lymph # (Auto) 2.08 (1.20-3.40) K/uL [place] # (Auto) 0.38 (0.11-0.59) K/uL Eos # (Auto) 0.26 (0.00-0.50) K/uL Baso # (Auto) 0.06 (0.00-0.20) K/uL Comprehensive Metabolic Panel 01/21/24 Range/Units 07:02 Sodium 139 (136-145) mmol/L Potassium 3.9 (3.5-5.1) mmol/L Chloride 106 (98-107) mmol/L Carbon Dioxide 27 (21-32) mmol/L BUN 15 (6-23) mg/dl Creatinine 1.13 (0.6-1.4) mg/dl Glucose 100 H (70-99(Fasting)) mg/dl Calcium 9.1 (8.6-10.3) mg/dl Intake and Output 01/20/24 01/21/24 01/21/24 22:59 06:59 14:59 Intake Total 50 / 1220 590 / 1220 Balance 50 / 1220 590 / 1220 Intake: IV 50 / 50 cefTRIAXone SODIUM 2,000 mg In 50 / 50 50 ml @ 100 mls/hr IV Q24H [facility] Rx#:[id number] Oral 590 / 1170 Other: # Unmeasured Voids 3 Weight 103.3 kg Weight Measurement Method Built in [facility] Diagnostic Findings Echocardiogram performed today revealed normal biventricular systolic function, LVEF 6065%, trace aortic regurgitation, no pericardial effusion Repeat EKG performed 01/21/2024 and interpret independently: Sinus bradycardia at 55 bpm with long first-degree AV block, SD interval 400 ms, nonspecific intraventricular conduction delay, Brugada type I pattern noted in lead V2. Compared to previous tracing, the first-degree AV block is slightly longer.
--- NOTE | 2024-01-21 15:28 | Hospitalist Progress Note ---
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 Pt was a stroke alert and was not a TNK candidate. Persistent Dizziness Doubt any stroke/strokelike symptoms-stroke has been ruled out Pt presenting with persistent dizziness Head CT, head and neck CTA all without acute findings Brain MRI -no acute findings Echo pending Orthostatic vitals-unremarkable Continue to monitor on telemetry Unremarkable clinically much better without any more dizziness and/or arrhythmias on monitor Appreciate neurology input and recommendation to continue with cardiology recommendation for symptoms of dizziness Remains stable without any significant cardiac or other symptoms and denies any more dizziness Lyme disease with possible Lyme carditis Lyme titer immunoglobin M and G are positive Will be confirmed with Western blot Has been on intravenous ceftriaxone and doxycycline Will monitor in the telemetry unit will Will continue current antibiotics and discharging on oral doxycycline Hx of Type 1 Brugada changes on EKG SCN5A gene positive EKG with Type 1 Brugada changes Echo pending Continue with telemetry monitoring Cardiology consulted, appreciate recs Denies any more cardiac symptoms Continue other home meds as ordered. CODE STATUS: Full code DVT prophylaxis: Heparin SQ Diet: HH after dysphagia screen Dispo: admit to PCU/tele Admission and Anticipated Discharge Date Admission Date: January 19, 2024 Subjective 01/20/2024 The patient was seen and examined in telemetry unit He was admitted with dizzy spells without any palpitation or chest pain Noted to have first-degree AV block with significant pauses at times Has been feeling much better during my examination this afternoon 01/21/2024 Patient was seen and examined in telemetry unit He has been feeling much better and has been ambulating in the room and in the hallway without any more dizziness Monitor did not show any more arrhythmias Denies any other significant symptoms Review of Systems Review of Systems: All systems reviewed and are unremarkable except as noted below Physical Exam Eyes: PERRL, conjunctivae normal, anicteric sclerae Neck: trachea midline, no thyromegaly Respiratory: no respiratory distress Auscultation: lungs clear to auscultation bilaterally Cardiovascular: Rate/Rhythm: regular rate and regular rhythm; not tachycardic Heart Sounds: normal S1 and normal S2; no murmur Extremities: no edema Gastrointestinal (Abdomen): Inspection/Auscultation: normal bowel sounds; abdomen not distended Percussion/Palpation: abdomen soft; abdomen nontender Neurologic: normal touch/pain/proprioception and moves all extremities; no focal motor deficits and not confused Psychiatric: A+Ox3, euthymic affect Lymphatic: no cervical or axillary lymphadenopathy Results & Data Results & Data Vital Signs (Past 12 Hours) Vital Signs Temp Pulse Pulse Resp BP Pulse Ox O2 Del Method 01/21/24 10:48 66 01/21/24 10:29 36.6 C 61 16 114/71 94 Room Air 01/21/24 07:50 36.7 C 63 16 108/68 95 Room Air Laboratory Results Short CBC 01/21/24 Range/Units 07:02 WBC 4.94 (4.8-10.8) K/ul Hgb 14.4 (14.0-18.0) g/dl Hct 43.1 (42.0-52.0) % Plt Count 282 (130-400) K/uL BMP 01/21/24 07:02 Sodium 139 Potassium 3.9 Chloride 106 Carbon Dioxide 27 BUN 15 Creatinine 1.13 Glucose 100 H Calcium 9.1 Medications Administered Current Inpatient Medications Bimatoprost (Bimatoprost 0.01% Op Soln 2.5 Ml Btl) 1 drops OPB HS [facility]; Protocol Stop: 02/18/24 20:59 Last Admin: 01/20/24 20:18 Dose: Not Given Doxycycline Hyclate (Doxycycline Hyclate 100 Mg Cap) 100 mg PO BID [facility] Stop: 01/29/24 20:59 Last Admin: 01/21/24 09:22 Dose: 100 mg Fluticasone Propionate (Fluticasone Propionate Na Spr 16 Gm Btl) 2 sprays MARCELLE BID [facility] Stop: 02/18/24 20:59 Last Admin: 01/21/24 09:22 Dose: 2 sprays Gabapentin (Gabapentin 300 Mg Cap) 300 mg PO HS [facility] Stop: 02/19/24 20:59 Last Admin: 01/20/24 20:18 Dose: 300 mg Heparin Sodium (Porcine) (Heparin Sod 5,000 Unit/0.5 Ml Vial) 5,000 units SQ Q12 [facility] Stop: 02/18/24 20:59 Last Admin: 01/21/24 09:22 Dose: 5,000 units Ceftriaxone Sodium (Rocephin) 2,000 mg in 50 mls @ 100 mls/hr IV Q24H [facility] Stop: 01/29/24 19:59 Last Infusion: 01/20/24 21:05 Dose: Infused Pantoprazole Sodium (Pantoprazole 40 Mg Tab) 40 mg PO QAM [facility] Stop: 02/19/24 08:59 Last Admin: 01/21/24 09:21 Dose: 40 mg Polyethylene Glycol (Polyethylene (Miralax) 17 Gm Pack) 17 gm PO DAILY [facility] Stop: 02/20/24 09:29 Last Admin: 01/21/24 09:29 Dose: 17 gm Timolol Maleate (Timolol Maleate 0.5% Op Soln 5 Ml Btl) 1 drops OPB QAM [facility] Stop: 02/19/24 08:59 Last Admin: 01/21/24 09:22 Dose: 1 drops
--- NOTE | 2024-01-21 21:49 | Electrocardiogram Report ---
Test Reason : Blood Pressure : */* mmHG Vent. Rate : 71 BPM Atrial Rate : 71 BPM P-R Int : 368 ms QRS Dur : 132 ms QT Int : 432 ms P-R-T Axes : 23 -24 24 degrees QTcB Int : 469 ms Sinus rhythm with 1st degree A-V block with occasional Premature ventricular complexes Brugada pattern Non-specific intra-ventricular conduction block Abnormal ECG When compared with ECG of 07-Mar-2008 13:56, DC interval has increased Premature ventricular complexes are now Present Brugada pattern is now present Confirmed by Bennie Cantu ([id number]) on 01/21/2024 9:48:59 PM Referred By: Jonathan Novak Confirmed By: Bennie Cantu
--- NOTE | 2024-01-21 22:20 | Electrocardiogram Report ---
Test Reason : Blood Pressure : */* mmHG Vent. Rate : 63 BPM Atrial Rate : 64 BPM P-R Int : 398 ms QRS Dur : 136 ms QT Int : 448 ms P-R-T Axes : 18 -43 25 degrees QTcB Int : 458 ms Sinus rhythm with 1st degree A-V block Left axis deviation Brugada pattern Abnormal ECG When compared with ECG of 19-Jan-2024 10:52, Premature ventricular complexes are no longer Present Confirmed by Bennie Cantu ([id number]) on 01/21/2024 10:20:24 PM Referred By: Jonathan Novak Confirmed By: Bennie Cantu
--- NOTE | 2024-01-21 22:21 | Electrocardiogram Report ---
Test Reason : Blood Pressure : */* mmHG Vent. Rate : 55 BPM Atrial Rate : 55 BPM P-R Int : 400 ms QRS Dur : 142 ms QT Int : 456 ms P-R-T Axes : 40 -4 57 degrees QTcB Int : 436 ms Sinus bradycardia with 1st degree A-V block Brugada pattern Abnormal ECG When compared with ECG of 20-Jan-2024 11:56, No significant change was found Confirmed by Bennie Cantu ([id number]) on 01/21/2024 10:20:53 PM Referred By: Jonathan Novak Confirmed By: Bennie Cantu
[2024-01-22 05:59] LABS: Basophils # (auto) 0.06 K/uL (0.00-0.20); Eosinophils # (auto) 0.31 K/uL (0.00-0.50); Eosinophils % (auto) 5.3 %; Hematocrit (blood only) 42.4 % (42.0-52.0); Hemoglobin 14.2 g/dl (14.0-18.0); Immature Granulocytes # (auto) 0.01 K/uL (0.01-0.20); Immature Granulocytes % (auto) 0.2 %; Lymphocytes # (auto) 2.14 K/uL (1.20-3.40); Lymphocytes % (auto) 36.5 %; Mean Corpuscular Hemoglobin 29.8 pg (25.0-34.0); Mean Corpuscular Hgb Conc 33.5 g/dL (32.0-36.0); Mean Corpuscular Volume 88.9 fL (80.0-100.0); Mean Platelet Volume 8.9 fL (9.4-12.4); Monocytes # (auto) 0.58 K/uL (0.11-0.59); Monocytes % (auto) 9.9 %; Neutrophils # (auto) 2.76 K/uL (1.40-6.50); Neutrophils % (auto) 47.1 %; Platelet Count 270 K/uL (130-400); RDW Coefficient of Variation 12.8 % (11.5-14.5); RDW Standard Deviation 41.8 fL (36.4-46.3); Red Blood Count 4.77 M/uL (4.70-6.10); White Blood Count 5.86 K/ul (4.8-10.8)
[2024-01-22 06:18] LABS: Calcium 9.2 mg/dl (8.6-10.3); Creatinine Clr Calc Pharmacy 83.7 ml/min; Est GFR (African American) 78.9 ml/min; Est GFR (Non-African American) 68.1 ml/min; Magnesium 2.3 mg/dl (1.7-2.4); Potassium 4.1 mmol/L (3.5-5.1)
--- NOTE | 2024-01-22 07:40 | Electrocardiogram Report ---
Test Reason : Blood Pressure : */* mmHG Vent. Rate : 55 BPM Atrial Rate : 55 BPM P-R Int : 392 ms QRS Dur : 136 ms QT Int : 444 ms P-R-T Axes : 19 -35 43 degrees QTcB Int : 424 ms Sinus bradycardia with 1st degree A-V block Left axis deviation Brugada pattern, type 1 Right bundle branch block Abnormal ECG When compared with ECG of 21-Jan-2024 06:08, No significant change was found Confirmed by Moises Rush ([id number] on 01/22/2024 7:40:36 AM Referred By: Jonathan Novak Confirmed By: Moises Rush
--- NOTE | 2024-01-22 09:32 | Cardiology Progress Note ---
Date of Service January 22, 2024 Assessment & Plan (1) Acute Lyme disease: (2) Near syncope: (3) Brugada pattern on electrocardiogram: (4) PVCs (premature ventricular contractions): (5) First degree atrioventricular block: Plan: Patient to remain in the hospital for the time being on IV Rocephin. Ambulate in [place] as tolerated. Repeat EKG in am of 01/23/2024 DVT prophylaxis: Subcutaneous heparin Admission and Anticipated Discharge Date Admission Date: January 19, 2024 Subjective Patient feeling well. Total 1 momentary transient lightheaded episode while in bed today, but nothing since he has gotten up. He is in good spirits. Telemetry reveals sinus rhythm in the 60s to 80s with ongoing long first-degree AV block. No sinus pauses since the two pauses of 2 seconds in duration each on 01/20/2024. Physical Exam Physical Exam: General: no acute distress and stated age Eyes: conjunctiva are pink and non-injected, sclera clear Neck: normal jugular venous pulse, no hepatojugular reflux Chest: normal shape and normal respiratory effort Lungs: clear to auscultation and percussion Cardiac Exam: - regular heart sounds, no murmurs, rubs, or gallops, no jugular venous distention Abdomen: abdomen soft, non-tender, no abnormal masses and no hepatosplenomegaly Musculoskeletal: no gait disturbance, no weakness Extremities: no edema and no cyanosis Neuro:awake, conversant, follows commands, no focal motor deficits Psych: appropriate affect and insight. Results & Data Vital Signs (Past 12 Hours) Vital Signs Temp Pulse Pulse Resp BP Pulse Ox O2 Del Method 01/22/24 07:44 36.4 C L 65 16 117/67 96 Room Air 01/22/24 03:00 36.8 C 97 H 16 110/70 96 CPAP 01/21/24 23:00 36.8 C 68 17 123/66 97 CPAP 01/21/24 21:46 65 Laboratory Results CBC 01/22/24 Range/Units 04:37 WBC 5.86 (4.8-10.8) K/ul RBC 4.77 (4.70-6.10) M/uL Hgb 14.2 (14.0-18.0) g/dl Hct 42.4 (42.0-52.0) % Plt Count 270 (130-400) K/uL Neut # (Auto) 2.76 (1.40-6.50) K/uL Lymph # (Auto) 2.14 (1.20-3.40) K/uL Mcintosh # (Auto) 0.58 (0.11-0.59) K/uL Eos # (Auto) 0.31 (0.00-0.50) K/uL Baso # (Auto) 0.06 (0.00-0.20) K/uL Comprehensive Metabolic Panel 01/22/24 Range/Units 04:37 Sodium 138 (136-145) mmol/L Potassium 4.1 (3.5-5.1) mmol/L Chloride 106 (98-107) mmol/L Carbon Dioxide 25 (21-32) mmol/L BUN 16 (6-23) mg/dl Creatinine 1.14 (0.6-1.4) mg/dl Glucose 99 (70-99(Fasting)) mg/dl Calcium 9.2 (8.6-10.3) mg/dl Intake and Output 01/21/24 01/22/24 01/22/24 22:59 06:59 14:59 Intake Total 50 / 1760 750 / 1760 Balance 50 / 1760 750 / 1760 Intake: IV 50 / 50 cefTRIAXone SODIUM 2,000 mg In 50 / 50 50 ml @ 100 mls/hr IV Q24H [facility] Rx#:[id number] Oral 750 / 1710 Other: # Unmeasured Voids 3 Weight 103.2 kg Weight Measurement Method Built in [facility] Diagnostic Findings EKG performed today 01/22/2024 and interpreted independently: Sinus bradycardia 55 bpm, first-degree AV block, IN interval 292 ms, type I Brugada pattern. Relatively unchanged.
--- NOTE | 2024-01-22 16:36 | Hospitalist Progress Note ---
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 Pt was a stroke alert and was not a TNK candidate. Persistent Dizziness Doubt any stroke/strokelike symptoms-stroke has been ruled out Pt presenting with persistent dizziness Head CT, head and neck CTA all without acute findings Brain MRI -no acute findings Echo pending Orthostatic vitals-unremarkable Continue to monitor on telemetry Unremarkable clinically much better without any more dizziness and/or arrhythmias on monitor Appreciate neurology input and recommendation to continue with cardiology recommendation for symptoms of dizziness Remains stable without any significant cardiac or other symptoms and denies any more dizziness Lyme disease with possible Lyme carditis Lyme titer immunoglobin M and G are positive Will be confirmed with Western blot Has been on intravenous ceftriaxone and doxycycline Will monitor in the telemetry unit will Will continue current antibiotics and discharging on oral doxycycline IL interval remains elevated at 392 [place] interval was 246 as of 06/16/2022-will discuss with the clam grower for possibility of continuing intravenous antibiotic and oral on discharge Hx of Type 1 Brugada changes on EKG SCN5A gene positive EKG with Type 1 Brugada changes Echo pending Continue with telemetry monitoring Cardiology consulted, appreciate recs Denies any more cardiac symptoms Continue other home meds as ordered. CODE STATUS: Full code DVT prophylaxis: Heparin SQ Diet: HH after dysphagia screen Dispo: admit to PCU/tele Admission and Anticipated Discharge Date Admission Date: January 19, 2024 Subjective 01/20/2024 The patient was seen and examined in telemetry unit He was admitted with dizzy spells without any palpitation or chest pain Noted to have first-degree AV block with significant pauses at times Has been feeling much better during my examination this afternoon 01/21/2024 Patient was seen and examined in telemetry unit He has been feeling much better and has been ambulating in the room and in the hallway without any more dizziness Monitor did not show any more arrhythmias Denies any other significant symptoms 01/22/2024 The patient was seen and examined in telemetry unit He has been ambulating and has had minimal dizziness at 1 point Did not have any arrhythmias and no significant pauses and monitor Review of Systems Review of Systems: All systems reviewed and are unremarkable except as noted below Physical Exam Physical Exam: Wandering in room without any acute distress Eyes: PERRL, conjunctivae normal, anicteric sclerae Neck: trachea midline, no thyromegaly Respiratory: no respiratory distress Auscultation: lungs clear to auscultation bilaterally Cardiovascular: Rate/Rhythm: regular rate and regular rhythm; not tachycardic Heart Sounds: normal S1 and normal S2; no murmur Extremities: no edema Gastrointestinal (Abdomen): Inspection/Auscultation: normal bowel sounds; abdomen not distended Percussion/Palpation: abdomen soft; abdomen nontender Neurologic: normal touch/pain/proprioception and moves all extremities; no focal motor deficits and not confused Psychiatric: A+Ox3, euthymic affect Lymphatic: no cervical or axillary lymphadenopathy Results & Data Results & Data Vital Signs (Past 12 Hours) Vital Signs Temp Pulse Pulse Resp BP Pulse Ox O2 Del Method 01/22/24 14:44 36.3 C L 61 110/71 97 Room Air 01/22/24 10:59 36.3 C L 52 L 17 119/75 96 Room Air 01/22/24 10:00 66 01/22/24 07:44 36.4 C L 65 16 117/67 96 Room Air Laboratory Results Short CBC 01/22/24 Range/Units 04:37 WBC 5.86 (4.8-10.8) K/ul Hgb 14.2 (14.0-18.0) g/dl Hct 42.4 (42.0-52.0) % Plt Count 270 (130-400) K/uL [facility] 01/22/24 04:37 Sodium 138 Potassium 4.1 Chloride 106 Carbon Dioxide 25 BUN 16 Creatinine 1.14 Glucose 99 Calcium 9.2 Medications Administered Current Inpatient Medications Bimatoprost (Bimatoprost 0.01% Op Soln 2.5 Ml Btl) 1 drops OPB HS [facility]; Protocol Stop: 02/18/24 20:59 Last Admin: 01/21/24 20:41 Dose: 1 drops Doxycycline Hyclate (Doxycycline Hyclate 100 Mg Cap) 100 mg PO BID [facility] Stop: 01/29/24 20:59 Last Admin: 01/22/24 08:58 Dose: 100 mg Fluticasone Propionate (Fluticasone Propionate Na Spr 16 Gm Btl) 2 sprays MARCELLE BID [facility] Stop: 02/18/24 20:59 Last Admin: 01/22/24 08:59 Dose: 2 sprays Gabapentin (Gabapentin 300 Mg Cap) 300 mg PO HS [facility] Stop: 02/19/24 20:59 Last Admin: 01/21/24 20:42 Dose: 300 mg Heparin Sodium (Porcine) (Heparin Sod 5,000 Unit/0.5 Ml Vial) 5,000 units SQ Q12 [facility] Stop: 02/18/24 20:59 Last Admin: 01/22/24 09:00 Dose: Not Given Ceftriaxone Sodium (Rocephin) 2,000 mg in 50 mls @ 100 mls/hr IV Q24H [facility] Stop: 01/29/24 19:59 Last Infusion: 01/21/24 22:34 Dose: Infused Pantoprazole Sodium (Pantoprazole 40 Mg Tab) 40 mg PO QAM [facility] Stop: 02/19/24 08:59 Last Admin: 01/22/24 08:59 Dose: 40 mg Polyethylene Glycol (Polyethylene (Miralax) 17 Gm Pack) 17 gm PO DAILY [facility] Stop: 02/20/24 09:29 Last Admin: 01/22/24 09:00 Dose: 17 gm Timolol Maleate (Timolol Maleate 0.5% Op Soln 5 Ml Btl) 1 drops OPB QAM [facility] Stop: 02/19/24 08:59 Last Admin: 01/22/24 09:00 Dose: Not Given
[2024-01-23 07:25] LABS: Calcium 9.1 mg/dl (8.6-10.3); Creatinine Clr Calc Pharmacy 89.2 ml/min; Est GFR (African American) 85.2 ml/min; Est GFR (Non-African American) 73.5 ml/min; Magnesium 2.3 mg/dl (1.7-2.4)
--- NOTE | 2024-01-23 10:34 | Cardiology Progress Note ---
Date of Service January 23, 2024 Assessment & Plan (1) Acute Lyme disease: (2) Near syncope: (3) Brugada pattern on electrocardiogram: Plan: -outpatient genetic testing was positive for the SCN5a genetic variant associated with Brugada syndrome. (4) PVCs (premature ventricular contractions): (5) First degree atrioventricular block: Plan: EKG performed today 01/23/2024 and interpret independently reveals sinus rhythm at 66 bpm with ongoing first-degree AV block, LA interval 372 ms, nonspecific IVCD, Brugada pattern in lead V2. LA interval has improved over the last 2 days and is under 400 ms. Patient had been observed to have two sinus pauses of 2 seconds in duration each on 01/20/2024 without recurrence. Stable from a cardiology perspective to discontinue IV Rocephin and transition to oral doxycycline to complete 21-day total course of antibiotics. I will message office to arrange outpatient follow-up visit. DVT prophylaxis: Subcutaneous heparin Admission and Anticipated Discharge Date Admission Date: January 19, 2024 Subjective Patient feeling well. 1 brief episode of lightheadedness earlier this morning that did not correlate with any abnormality on telemetry. Telemetry reveals sinus bradycardia in the 50s this morning with ongoing first-d egree AV block. No ventricular arrhythmias. Physical Exam Physical Exam: General: no acute distress and stated age Eyes: conjunctiva are pink and non-injected, sclera clear Neck: normal jugular venous pulse, no hepatojugular reflux Chest: normal shape and normal respiratory effort Lungs: clear to auscultation and percussion Cardiac Exam: - regular heart sounds, no murmurs, rubs, or gallops, no jugular venous distention Abdomen: abdomen soft, non-tender, no abnormal masses and no hepatosplenomegaly Musculoskeletal: no gait disturbance, no weakness Extremities: no edema and no cyanosis Neuro:awake, conversant, follows commands, no focal motor deficits Psych: appropriate affect and insight. Results & Data Vital Signs (Past 12 Hours) Vital Signs Temp Pulse Pulse Resp BP Pulse Ox O2 Del Method 01/23/24 08:14 36.6 C 62 18 111/70 97 Room Air 01/23/24 07:48 62 01/23/24 03:01 36.4 C L 68 18 121/72 98 CPAP 01/23/24 00:00 55 L 01/22/24 22:49 36.6 C 57 L 18 127/68 95 Room Air
[2024-01-23 11:37] VITALS: BP 115/71; PULSE 54; RESP 20; TEMP 97.5; O2SAT 96
--- NOTE | 2024-01-23 12:05 | Hospitalist Progress Note ---
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 Pt was a stroke alert and was not a TNK candidate. Persistent Dizziness Doubt any stroke/strokelike symptoms-stroke has been ruled out Pt presenting with persistent dizziness Head CT, head and neck CTA all without acute findings Brain MRI -no acute findings Echo pending Orthostatic vitals-unremarkable Continue to monitor on telemetry Unremarkable clinically much better without any more dizziness and/or arrhythmias on monitor Appreciate neurology input and recommendation to continue with cardiology recommendation for symptoms of dizziness Remains stable without any significant cardiac or other symptoms and denies any more dizziness No more significant dizziness and/or arrhythmias Evaluated by cardiology this morning and advised that he can go home Lyme disease with possible Lyme carditis Lyme titer immunoglobin M and G are positive Will be confirmed with Western blot Has been on intravenous ceftriaxone and doxycycline Will monitor in the telemetry unit will Will continue current antibiotics and discharging on oral doxycycline MS interval remains elevated at 392 MS interval was 246 as of 06/16/2022-will discuss with the supervisor type disk quality control for possibility of continuing intravenous antibiotic and oral on discharge He will be discharged home this afternoon on oral doxycycline for a total of 21 days Hx of Type 1 Brugada changes on EKG SCN5A gene positive EKG with Type 1 Brugada changes Echo pending Continue with telemetry monitoring Cardiology consulted, appreciate recs Denies any more cardiac symptoms Will have appointment with supervisor type disk quality control within 2 to 3 weeks Continue other home meds as ordered. CODE STATUS: Full code DVT prophylaxis: Heparin SQ Diet: HH after dysphagia screen Dispo: admit to PCU/tele Admission and Anticipated Discharge Date Admission Date: January 19, 2024 Subjective 01/20/2024 The patient was seen and examined in telemetry unit He was admitted with dizzy spells without any palpitation or chest pain Noted to have first-degree AV block with significant pauses at times Has been feeling much better during my examination this afternoon 01/21/2024 Patient was seen and examined in telemetry unit He has been feeling much better and has been ambulating in the room and in the hallway without any more dizziness Monitor did not show any more arrhythmias Denies any other significant symptoms 01/22/2024 The patient was seen and examined in telemetry unit He has been ambulating and has had minimal dizziness at 1 point Did not have any arrhythmias and no significant pauses and monitor 01/23/2024 The patient was seen and examined in telemetry unit He has been feeling much better and has been ambulating in the hallway with minimal dizziness No evidence of significant pauses and/or arrhythmias He will be discharged home this afternoon Review of Systems Review of Systems: All systems reviewed and are unremarkable except as noted below Physical Exam Physical Exam: Wandering in room without any acute distress Eyes: PERRL, conjunctivae normal, anicteric sclerae Neck: trachea midline, no thyromegaly Respiratory: no respiratory distress Auscultation: lungs clear to auscultation bilaterally Cardiovascular: Rate/Rhythm: regular rate and regular rhythm; not tachycardic Heart Sounds: normal S1 and normal S2; no murmur Extremities: no edema Gastrointestinal (Abdomen): Inspection/Auscultation: normal bowel sounds; abdomen not distended Percussion/Palpation: abdomen soft; abdomen nontender Neurologic: normal touch/pain/proprioception and moves all extremities; no focal motor deficits and not confused Psychiatric: A+Ox3, euthymic affect Lymphatic: no cervical or axillary lymphadenopathy Results & Data Results & Data Vital Signs (Past 12 Hours) Vital Signs Temp Pulse Pulse Resp BP Pulse Ox O2 Del Method 01/23/24 11:36 36.4 C L 54 L 20 115/71 96 Room Air 01/23/24 08:14 36.6 C 62 18 111/70 97 Room Air 01/23/24 07:48 62 01/23/24 03:01 36.4 C L 68 18 121/[address] [facility] 01/23/24 06:16 Sodium 136 Potassium 4.0 Chloride 105 Carbon Dioxide 24 BUN 16 Creatinine 1.07 Glucose 100 H Calcium 9.1 Medications Administered Current Inpatient Medications Bimatoprost (Bimatoprost 0.01% Op Soln 2.5 Ml Btl) 1 drops OPB HS [facility]; Protocol Stop: 02/18/24 20:59 Last Admin: 01/22/24 20:51 Dose: Not Given Doxycycline Hyclate (Doxycycline Hyclate 100 Mg Cap) 100 mg PO BID AMBER Stop: 01/29/24 20:59 Last Admin: 01/23/24 10:07 Dose: 100 mg Fluticasone Propionate (Fluticasone Propionate Na Spr 16 Gm Btl) 2 sprays MARCELLE BID AMBER Stop: 02/18/24 20:59 Last Admin: 01/23/24 10:07 Dose: 2 sprays Gabapentin (Gabapentin 300 Mg Cap) 300 mg PO HS AMBER Stop: 02/19/24 20:59 Last Admin: 01/22/24 20:55 Dose: 300 mg Heparin Sodium (Porcine) (Heparin Sod 5,000 Unit/0.5 Ml Vial) 5,000 units SQ Q12 AMBER Stop: 02/18/24 20:59 Last Admin: 01/23/24 10:07 Dose: Not Given Ceftriaxone Sodium (Rocephin) 2,000 mg in 50 mls @ 100 mls/hr IV Q24H AMBER Stop: 01/29/24 19:59 Last Infusion: 01/22/24 21:49 Dose: Infused Pantoprazole Sodium (Pantoprazole 40 Mg Tab) 40 mg PO QAM AMBER Stop: 02/19/24 08:59 Last Admin: 01/23/24 10:07 Dose: 40 mg Polyethylene Glycol (Polyethylene (Miralax) 17 Gm Pack) 17 gm PO DAILY AMBER Stop: 02/20/24 09:29 Last Admin: 01/23/24 10:08 Dose: 17 gm Timolol Maleate (Timolol Maleate 0.5% Op Soln 5 Ml Btl) 1 drops OPB QAM [facility] Stop: 02/19/24 08:59 Last Admin: 01/23/24 10:08 Dose: Not Given
--- NOTE | 2024-01-23 14:35 | Electrocardiogram Report ---
Test Reason : Blood Pressure : */* mmHG Vent. Rate : 66 BPM Atrial Rate : 66 BPM P-R Int : 372 ms QRS Dur : 140 ms QT Int : 436 ms P-R-T Axes : 52 245 56 degrees QTcB Int : 457 ms Sinus rhythm with 1st degree A-V block Right superior axis deviation Non-specific intra-ventricular conduction block Abnormal ECG When compared with ECG of 22-Jan-2024 06:03, QRS axis Shifted left Confirmed by Moises Rush ([id number]) on 01/23/2024 2:34:54 PM Referred By: Jonathan Novak Confirmed By: Moises Ruhs
[2024-01-23 22:58] LABS: Babesia microti DNA Not Detected (Not Detected)
--- NOTE | 2024-01-24 07:17 | Discharge Summary ---
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 Pt was a stroke alert and was not a TNK candidate. States that he had "about 20" episodes of dizziness this morning since waking u p. States it did not matter what he was doing at the time, had episodes while eating breakfast, laying down, etc. Does note that he has been very active outside recently walking the dog and riding his bicycle. States that he has been trying to stay hydrated whenever he does that. Describes the episodes of dizziness like he is "about to pass out" but states that he does not really. States it feels like it goes dark. Per chart review pt with Hx of brugada changes on EKG with positive gene testing, was being followed by cardiology. Currently denies any symptoms while being in the hospital. Pt was a stroke alert on arrival but deemed not a TNK candidate after evaluation by telestroke. Admission Exam Per Admitting Provider Physical Exam: General: Alert, oriented. No acute distress Skin: No noted rashes or bruises Psych: Appropriate mood and affect Neuro: No gross deficits, strength 5/5 bilaterally HEENT: NC/AT CV: RRR Resp: Breath sounds clear bilaterally, no increased effort of breathing. Abdomen: Soft, nontender, nondistended Extremities: No edema in lower extremities bilaterally. Principal Diagnosis Acute Lyme disease, Brugada pattern , dizziness, first-degree intraventricular block Discharge Exam Wandering in room without any acute distress Eyes PERRL, conjunctivae normal, anicteric sclerae Neck trachea midline, no thyromegaly Respiratory no respiratory distress Auscultation: lungs clear to auscultation bilaterally Cardiovascular Rate/Rhythm: regular rate and regular rhythm; not tachycardic Heart Sounds: normal S1 and normal S2; no murmur Extremities: no edema Gastrointestinal (Abdomen) Inspection/Auscultation: normal bowel sounds; abdomen not distended Percussion/Palpation: abdomen soft; abdomen nontender Neurologic normal touch/pain/proprioception and moves all extremities; no focal motor deficits and not confused Psychiatric A+Ox3, euthymic affect Lymphatic no cervical or axillary lymphadenopathy Discharge Data Allergies Allergy/AdvReac Type Severity Reaction Status Date / Time aspirin Allergy Mild Unverified 06/28/09 04:28 Consultations 01/19/24 12:15 ED Decision to Admit Stat 01/19/24 15:28 Consult Cardiology Routine Consult Neurology Routine Ordered Studies 01/19/24 10:35 CT angio head w con Stat CT angio neck with con Stat CT head/brain wo con Stat 01/19/24 15:28 MR brain wo/w con Routine Hospital Course (1) PVCs (premature ventricular contractions): (2) Brugada pattern on electrocardiogram: (3) Stroke-like symptoms: (4) Dizziness: Plan Pt is a 63yoM with PMhx significant for 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 Pt was a stroke alert and was not a TNK candidate. Persistent Dizziness Doubt any stroke/strokelike symptoms-stroke has been ruled out Pt presenting with persistent dizziness Head CT, head and neck CTA all without acute findings Brain MRI -no acute findings Echo pending Orthostatic vitals-unremarkable Continue to monitor on telemetry Unremarkable clinically much better without any more dizziness and/or arrhythmias on monitor Appreciate neurology input and recommendation to continue with cardiology recommendation for symptoms of dizziness Remains stable without any significant cardiac or other symptoms and denies any more dizziness No more significant dizziness and/or arrhythmias Evaluated by cardiology this morning and advised that he can go home Lyme disease with possible Lyme carditis Lyme titer immunoglobin M and G are positive Will be confirmed with Western blot Has been on intravenous ceftriaxone and doxycycline Will monitor in the telemetry unit will Will continue current antibiotics and discharging on oral doxycycline AR interval remains elevated at 392 AR interval was 246 as of 06/16/2022-will discuss with the transportation design engineer for possibility of continuing intravenous antibiotic and oral on discharge He will be discharged home this afternoon on oral doxycycline for a total of 21 days Hx of Type 1 Brugada changes on EKG SCN5A gene positive EKG with Type 1 Brugada changes Echo pending Continue with telemetry monitoring Cardiology consulted, appreciate recs Denies any more cardiac symptoms Will have appointment with transportation design engineer within 2 to 3 weeks Continue other home meds as ordered. CODE STATUS: Full code DVT prophylaxis: Heparin SQ Diet: HH after dysphagia screen Dispo: admit to PCU/tele Total Time Total Time Spent Total Time Spent (In Minutes): 35 minutes Discharge Plan Discharge Items Patient Disposition: Home - Self-Care Reason For Visit: dizziness Discharge Diagnosis: Acute Lyme disease, Brugada pattern , dizziness, first-degree intraventricular block Condition on Discharge: Good Activity: Resume your previous activity Non-emergency contact: Primary Care Provider Call non-emergency contact if: you have any medication questions and your symptoms worsen Follow-up/Referrals: Jonathan Novak MD [Primary Care Provider] - 01/27/24 1:00 pm (Date & Time 01/27/2024 1:00 PM Provider Cherelle Campos PA-C Department [facility] ) Diet: Heart Healthy Addtl Attending Provider Instructions: Please take precautions to avoid falls Finish the course of antibiotic Please keep appointments with healthcare providers Pending Studies at Discharge: Yes Studies:: Anaplasma and Babesia PCR Stand-Alone Forms: [employer], Smoking Cessation Medications and DC Order Prescriptions: New doxycycline hyclate 100 mg Capsule 100 mg PO BID Qty: 35 0RF Continued Multivitamin tablet 1 tab PO DAILY Qty: 0 Rx Instructions: otc unable to verify Omeprazole (Prilosec) 40 MG CONTR REL CAP 40 mg PO UD Qty: 0 Rx Instructions: 40 mg daily no record with pharmacy Travoprost (Travatan Oph Soln 0.004% *) 37 DROPS/2.5 ML solution 1 drp ophthalmic (eye) UD Qty: 0 Rx Instructions: 1 drop daily no record with pharmacy bimatoprost 0.03 % drops 1 drp OPB HS pantoprazole 40 mg tablet,delayed release (DR/EC) 40 mg PO QAM gabapentin 300 mg capsule 300 - 600 mg PO HS timolol maleate 0.5 % drops 1 drp OPB QAM fluticasone propionate 50 mcg/actuation spray,suspension 2 spray INTRANASAL BID Discharge Orders: Discharge Order (Routine); Ordered 01/23/24 Ordered By: Adolfo Ruelas Admission Data Admit Date/Time: 01/19/24 12:33 Attending Provider: Adolfo Rueals Admit Provider: Yi Espana Primary Care Provider: Jonathan Novak Other Providers: Yi Espana; Popeye Nuno; Marycarmen Lazo Other Interventions: Discharge Summary Assessment (RN) Last Done: 01/23/24 12:36
== END 2024-01-23 13:47 | disposition home or self-care (01) | DRG 869 ==
LOC: ED 10:18 → SUATTDRO 12:33 → EDINP 12:33 → 4W 15:29